=== PATIENT | male | born 1960 | race Caucasian/White ===

== ENCOUNTER 2019-07-18 13:28 | Outpatient (CLI) | payer MEDICAID, SELFPAY ==
--- NOTE | 2019-07-18 15:00 | USCV_ITS ---
Carrie Ty Age: 59 Gender: M : 1960 Exam Date: 07/18/2019 14:45 Ordering Phys: Simón Mendes DPM Technologist: Kaur Morgan Exam Location: [facility] [place] Indication: pre op evaluation for surgical contraindication HISTORY: for surgical contraindication- pre op for right ankle nodule PROCEDURES: Bilaterally, the common femoral, superficial femoral, profunda femoral, popliteal, posterior tibial, greater saphenous veins, and the peroneal trunk were identified and interrogated in the standard fashion. These veins were found to be easily compressible with spontaneous blood flow. FINDINGS: No DVT or superficial thrombus in either extremity. CONCLUSIONS No evidence of right lower extremity DVT. No evidence of left lower extremity DVT. 1.3 x 1.8cm cystic nodule right ankle Vargas Serrato MD (Electronically Signed) Final Date: 18 July 2019 16:16 S
--- NOTE | 2019-07-18 16:00 | MR_ITS ---
WS: [id number] MRI RIGHT ANKLE NONCONTRAST TECHNIQUE: Sagittal proton density, sagittal STIR, axial proton density, axial T1, axial T2 fat sat, coronal proton density, coronal proton density fat sat, coronal T2 fat sat. CLINICAL INFORMATION: mass of right ankle COMPARISON: None. FINDINGS: T2 hyperintense lobulated cystic-appearing lesion in the area of palpable abnormality dorsal ankle. L obulated T2 hyperintense lesion measures approximately 1.9 x 1.5 x 2.8 cm. T2 hyperintense lesion is interposed between the Achilles tendon and the dorsal process of the talus. No significant bony erosi on. Lobulated lesion appears well encapsulated. Some associated T1 hyperintensity likely represents p roteinaceous debris. Achilles tendon is normal in appearance. Normal peroneus longus and brevis. Normal flexor and extenso r compartment tendons. MR/MR ankle RT wo con* [id number] IMPRESSION: 1. Lobulated T2 hyperintense lesion interposed between the Achilles tendon and posterior process of the talus likely represents ganglion cyst 2. Suspected ganglion cyst measures 1.9 x 1.5 x 2.8 cm
== END 2019-07-18 13:29 | disposition home or self-care (01) ==
LOC: US 13:30
PROVIDERS: Family Provider Nurse Practitioner Family; PCP Nurse Practitioner Family; Visit Provider Podiatrist Foot & Ankle Surgery
DX: Z01.818 Encounter for other preprocedural examination (principal); R22.41 Localized swelling, mass and lump, right lower limb
CPT/HCPCS: 73721; 93970

== ENCOUNTER → 2019-08-11 08:36 | Outpatient (BNVA) | payer MEDICAID, SELFPAY | PROVIDERS: Family Provider Nurse Practitioner Family; PCP Nurse Practitioner Family; Visit Provider Podiatrist Foot & Ankle Surgery | DX: M67.40 Ganglion, unspecified site (principal) | CPT/HCPCS: 88112; 88173; 88305 ==

== ENCOUNTER → 2020-01-16 12:10 | Outpatient (BNVA) | payer MEDICAID, SELFPAY | PROVIDERS: Family Provider Nurse Practitioner Family; PCP Nurse Practitioner Family; Visit Provider Nurse Practitioner Family | DX: M79.642 Pain in left hand (principal) | CPT/HCPCS: 73130 ==

== ENCOUNTER → 2020-03-22 16:15 | Outpatient (BNVA) | payer MEDICAID, SELFPAY | PROVIDERS: Family Provider Nurse Practitioner Family; PCP Nurse Practitioner Family; Visit Provider Nurse Practitioner Family | DX: Z11.59 Encounter for screening for other viral diseases (principal); J06.9 Acute upper respiratory infection, unspecified | CPT/HCPCS: 87635 ==

== ENCOUNTER 2020-05-15 12:07 | Emergency (ER) | payer MEDICAID, SELFPAY ==
[2020-05-15 12:13] VITALS: BP 119/73; PULSE 82; RESP 16; TEMP 37.1; O2SAT 96; BMI 21.9
--- NOTE | 2020-05-15 12:21 | PC.NURSE ---
pt placed in c-collar.
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
[2020-05-15 12:24] VITALS: PULSE 80
== END 2020-05-15 13:56 | disposition home or self-care (01) ==
PROVIDERS: Emergency Provider Nurse Practitioner Family; PCP Nurse Practitioner Family
DX: S46.912A Strain of unspecified muscle, fascia and tendon at shoulder and upper arm level, left arm, initial encounter (principal); V89.2XXA Person injured in unspecified motor-vehicle accident, traffic, initial encounter; F17.210 Nicotine dependence, cigarettes, uncomplicated
CPT/HCPCS: 12345; 73030; 99281; 99282

== ENCOUNTER → 2020-05-22 11:03 | Outpatient (BNVA) | payer OTHER, MEDICAID, SELFPAY | PROVIDERS: PCP Nurse Practitioner Family; Visit Provider Nurse Practitioner Family | DX: M54.9 Dorsalgia, unspecified (principal); M54.2 Cervicalgia; M79.604 Pain in right leg | CPT/HCPCS: 72040; 72072; 72100; 73590 ==

== ENCOUNTER 2020-06-01 14:41 | Outpatient (CLI) | payer MEDICAID, SELFPAY ==
--- NOTE | 2020-06-01 14:45 | CT_ITS ---
WS: [id number] CT scan of the head, 06/01/2020. Clinical Data: R51.9 - Headache, unspecified Comparison: 06/11/2015. DLP: 925.[address] scans at [facility] use at least one of these dose optimization techniques: automat ed exposure control; mA and/or kV adjustment per patient size (includes targeted exams where dose is matched to clinical indication); or iterative reconstruction. Findings: The ventricular system is normal without shift. No recent infarct or hemorrhage is seen. There are no abnormal intracerebral masses. The cerebellum and brainstem are not remarkable. Bony windows of the skull and skull base show no fractures or erosions. The mastoid air cells, pr intern al auditory canals, sella turcica, intraorbital contents, and paranasal sinuses are unremarkable. CT/CT head wo con* [id number] Impression: Negative CT scan of the head
== END 2020-06-01 14:42 | disposition home or self-care (01) ==
LOC: RADWPI 14:44
PROVIDERS: PCP Nurse Practitioner Family; Visit Provider Nurse Practitioner Family
DX: R51.9 Headache, unspecified (principal)
CPT/HCPCS: 70450

== ENCOUNTER → 2020-07-09 10:26 | Outpatient (BNVA) | payer MEDICAID, SELFPAY | PROVIDERS: PCP Nurse Practitioner Family; Visit Provider Podiatrist Foot & Ankle Surgery | DX: Z01.812 Encounter for preprocedural laboratory examination (principal); Z20.828 Contact with and (suspected) exposure to other viral communicable diseases | CPT/HCPCS: 87635 ==

== ENCOUNTER 2020-07-13 07:19 | Day surgery (SDC) | payer MEDICAID, SELFPAY ==
[2020-07-12 15:34] VITALS: BMI 20.3
[2020-07-13 07:42] VITALS: BP 139/98; PULSE 83; RESP 18; TEMP 36.8; O2SAT 97
[2020-07-13] MEDS: sodium chloride 0.9% 1,000 ML 30 ML IV (08:00)
--- NOTE | 2020-07-13 08:21 | ANES.PREANE2 ---
Pre-Anesthetic Assessment Pre-Anesthetic Assessment: Height/Weight: Height 1.6 m Weight 52.163 kg Temp Pulse Resp BP Pulse Ox 98.3 F 83 18 139/98 97 07/13/20 07:42 07/13/20 07:42 07/13/20 07:42 07/13/20 07:42 07/13/20 07:42 Preop Diagnosis: Ganglion cyst right lower extremity Proposed Procedure: Operation Date: 07/13/20 09:45 Proposed Procedures p Excision of ganglion cyst 36265 M67.40(Not Applicable) - Simón Mendes, DPM Was Beta Byron taken within 24 hours: N/A Last intake: Intake Last Liquid Date 07/12/20 Last Liquid Time 22:00 Last Solid Date 07/12/20 Last Solid Time 17:00 Social: Social History: Tobacco and No alcohol Exam: Pre-Anes Outpt Exam: alert, oriented x 3 and regular rate & rhythm Additional Exam Findings (including area of procedure): rhonchi Airway: Submandibular: WNL Cervical ROM: WNL MP: 2 Dentition: False Pulmonary: Pulmonary: Cough Musc/skel: Musc/skel: Lower Back Pain Neuropsych: Neuropsych: Seizure Anesthetic Plan: ASA status: 3 Anesthesia: General and Regional (specify below) (poploteal blk) Risk of > 500 ml blood loss (7ml/kg in children): No PFSH Anesthesia PFSH: Medical History Controlled epilepsy follows with Dr Cooper Lipoma of extremity Restless legs syndrome Seasonal allergies Spinal stenosis, cervical region Surgical History History of back surgery Hx of brain surgery (~1970) Hx of hand surgery bilateral Hx of hernia repair Hx of shoulder surgery Hx of tonsillectomy Social History Smoking and tobacco status: current every day smoker cigarettes Packs smoked per day: 0.25 Years cigarettes smoked: 40 Second hand smoke exposure: No Alcohol intake: never Lives independently: Yes Household members: none Marital status: Current occupational status: employed 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
--- NOTE | 2020-07-13 09:24 | W.PM.OPSUD ---
Surgery/Procedure H&P Update DATE OF PROCEDURE: July 13, 2020 DATE H&P PERFORMED: 07/04/20 H&P UPDATE INFORMATION: I have reviewed H&P completed within last 30 days, I have examined patient prior to procedure, No changes to prior documentation and H&P is in [facility] EMR on date indicated PREOP DIAGNOSIS: Ganglion cyst right lower extremity PLANNED PROCEDURE: Operation Date: 07/13/20 09:45 Proposed Procedures p Excision of ganglion cyst 01059 M67.40(Not Applicable) - Simón Mendes DPM
--- NOTE | 2020-07-13 09:25 | P.OP_ITS ---
Operative Report Date of procedure: July 13, 2020 Pre-op Diagnosis: Ganglion cyst right lower extremity Post-op diagnosis: same Post-op Findings: Ganglion cyst right lower extremity Procedure Done: Excision of ganglion cyst right lower extremity CPT code 39186 Implants: 2-0 Vicryl, 4-0 Vicryl, 4-0 nylon Specimens removed/disposition: Ganglion cyst right lower extremity sent to cytology and pathology Pathology: none sent Surgeon: Simón Mendes D.P.M. Planting Material Remover: Raffaele Anesthesia: MAC Estimated blood loss: Less than 20 mL Tourniquet time: No tourniquet utilized IV fluids: None Urine output: None Complications: None Findings: Ganglion cyst right lower extremity Condition: stable Disposition: PACU Brief History: Patient is a pleasant 60-year-old male with ganglion cyst confirmed on MRI that is clinically symptomatic and subjectively a causing him pain with everyday activity standing and walking. Cyst has been enlarging causing him more intense pain he would like to have it removed. He did have aspirated once and it returned over the course of several months. Risks include pain, bleeding, numbness, infection, recurrence of ganglion cyst. Scar tissue, damage to adjacent soft tissue structures, need for further surgical intervention, seroma, hematoma, surgical site dehiscence, painful scar. Patient interviewed preoperatively and all questions answered to patient satisfaction. Informed consent signed by patient and myself. Initial patient's right lower extremity with a skin marker. He wishes to proceed. No guarantees written, expressed or implied. Procedure: Under mild sedation the patient was brought to the operating room and a timeout was performed. Anesthesia was administered by the anesthesia service. Of note patient received a popliteal block preoperatively to the right lower extremity per anesthesia. Patient was placed on the operating table in lateral decubitus position lying on his left side. Well-padded pneumatic tourniquet applied to the right high calf. Right lower extremity was scrubbed, prepped and draped utilizing normal aseptic technique. Of note tourniquet was not inflated throughout the duration of the procedure. Attention was directed to the right posterior lateral distal Achilles where a linear longitudinal incision was made at a posterior lateral ankle technique utilizing a #15 blade through skin and dissection carried down through subcutaneous tissue utilizing a combination of sharp and blunt technique. Care was taken to retract and preserve neurovascular and tendon structures. Bleeders were ligated and cauterized as necessary. Anterior to the Achilles and posterior to the distal tibia a ganglion cyst that was multilobulated was encountered and freed up from adjacent soft tissue structures. This was excised and passed from operative field sent to pathology/cytology for review. Stalk was cauterized and tied off with 2-0 Vicryl. Incision site was flushed with copious amounts of sterile saline solution. Deep fascia reapproximated utilizing 2-0 Vicryl. Subcutaneous tissue reapproximated utilizing 4-0 Vicryl and skin reapproximated utilizing 4-0 nylon. Incision site was dressed with Adaptic, sterile 4 x 4, Kerlix and Zelalem wrap followed by application of postop shoe. Patient tolerated the procedure well and was transferred to the PACU with vital signs stable and vascular status intact. Following a period of postoperative monitoring he will be discharged home may be weightbearing as tolerated he is to keep his postoperative dressings clean, dry and intact until follow-up visit next week.
[2020-07-13 09:28] VITALS: RESP 18; O2SAT 98
[2020-07-13] MEDS: fentaNYL 50 mcg/mL INJ 2mL IVP (09:28)
[2020-07-13] MEDS: midazolam 1 mg/mL INJ 2 mL 2 MG IVP (09:28)
--- NOTE | 2020-07-13 09:31 | ANES.PROC ---
Anesthesia Procedures Procedure/Date: 07/13/20 Nerve Block ^: Nerve Block 1: Main Anesthesia: other (MAC) Time Out Performed: Yes Consent: requested by attending/covering physician, from patient, risks and benefits reviewed and patient agrees to proceed Nerve block location: popliteal (right) Anesthesia monitors applied: pulse oximetry, EKG, BP cuff and oxygen Nerve block position: lateral Anesthetic Used: ropivicaine 0.5% and with epi Amount of anesthesia used (mL): 30 Ultrasound used to: recognize landmarks Nerve Stimulator Used?: No Interscalene/Femoral BLK: 4 stimuplex 21 g needle used for position and inplane approach, visualize local anesthetic spread and no vascular puncture identified Injection: neg aspiration of heme Patient Tolerated Procedure: well Complications: none
[2020-07-13] MEDS: clindamycin 600 MG/50 ML PREMIX 100 MG IV (10:13)
[2020-07-13 11:31] VITALS: BP 125/80; PULSE 87; RESP 18; TEMP 36.3; O2SAT 96
--- NOTE | 2020-07-13 11:43 | ANE.PACU2 ---
Inpatient post-anesthesia follow up: Airway intact: Yes Vital signs: Temperature 97.3 F Pulse Rate 87 Respiratory Rate 18 Blood Pressure 125/80 Pulse Oximetry 96 Oxygen Delivery Me thod Room Air Oxygen Flow Rate Fraction of Inspir ed Oxygen Hydration adequate: Yes Nausea and vomiting: No Pain level: 1 Mental status: Baseline
[2020-07-13 12:03] VITALS: BP 141/98; PULSE 87; RESP 18; TEMP 36.1; O2SAT 97
== END 2020-07-13 13:01 | disposition home or self-care (01) ==
PROVIDERS: PCP Nurse Practitioner Family; Visit Provider Podiatrist Foot & Ankle Surgery
PROC: (CPT 27630; principal; 2020-07-13 09:35)
DX: M67.471 Ganglion, right ankle and foot (principal); F17.210 Nicotine dependence, cigarettes, uncomplicated
CPT/HCPCS: 27630; 12345; 64450; 76942; 88304; 96365; 96374; J0171; J2250; J2370; J2704; J2795; J3010; J3490; J7030

== ENCOUNTER → 2021-07-30 12:15 | Outpatient (BNVA) | payer MEDICAID, SELFPAY | PROVIDERS: PCP Nurse Practitioner Family; Visit Provider Nurse Practitioner Family | DX: G43.909 Migraine, unspecified, not intractable, without status migrainosus (principal); R73.9 Hyperglycemia, unspecified; G25.81 Restless legs syndrome; G40.909 Epilepsy, unspecified, not intractable, without status epilepticus; M54.9 Dorsalgia, unspecified; M54.2 Cervicalgia | CPT/HCPCS: 80053; 80061; 82306; 82607; 83036; 83735; 84443; 85025 ==

== ENCOUNTER → 2021-09-09 10:29 | Outpatient (BNVA) | payer MEDICAID, SELFPAY | PROVIDERS: PCP Nurse Practitioner Family; Visit Provider Nurse Practitioner Family | DX: R73.09 Other abnormal glucose (principal) | CPT/HCPCS: 36416; 80053; 82962; 85025 ==

== ENCOUNTER → 2022-06-13 15:14 | Outpatient (BNVA) | payer MEDICAID, SELFPAY | PROVIDERS: PCP Nurse Practitioner Family; Visit Provider Nurse Practitioner Family | DX: E11.9 Type 2 diabetes mellitus without complications (principal); Z12.5 Encounter for screening for malignant neoplasm of prostate; E55.9 Vitamin D deficiency, unspecified; G89.29 Other chronic pain; M54.2 Cervicalgia; R42 Dizziness and giddiness | CPT/HCPCS: 80053; 80061; 82306; 83036; 84443; 85025; G0103 ==

== ENCOUNTER 2022-06-20 15:58 | Outpatient (CLI) | payer MEDICAID, SELFPAY ==
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
--- NOTE | 2022-06-20 16:08 | XRR_ITS ---
PROCEDURE INFORMATION: Exam: XR Thoracic Spine Exam date and time: 06/20/2022 4:09 PM Age: 62 years old Clinical indication: Injury or trauma; Other: Unloading auger; Blunt trauma (contusions or hematomas); Injury date: 06/18/22; Prior surgery; Surgery date: 6+ months; Surgery type: Cervical fusion; Patient HX: While unloading equipment from truck it took him to ground. C/O back pain, neck pain, muscle spasms. Fingertips asleep; Additional info: M54.2 - cervicalgia TECHNIQUE: Imaging protocol: Radiologic exam of the thoracic spine. Views: 3 views. COMPARISON: CR XR thoracic spine 3V* [id number] 05/22/2020 11:11 AM FINDINGS: Bones/joints: The thoracic spine maintains a normal kyphotic curvature. No spondylolisthesis identified. The vertebral bodies maintain normal height. The intervertebral discs maintain normal height. Minimal endplate degenerative changes. Soft tissues: Unremarkable. XR/XR thoracic spine 3V* [id number] IMPRESSION: No vertebral body height loss or traumatic malalignment identified.
== END 2022-06-20 15:59 | disposition home or self-care (01) ==
LOC: RAD 16:02
PROVIDERS: PCP Nurse Practitioner Family; Visit Provider Nurse Practitioner Family
DX: M54.2 Cervicalgia (principal); M54.50 Low back pain, unspecified; R07.81 Pleurodynia; M54.6 Pain in thoracic spine
CPT/HCPCS: 71111; 72040; 72072; 72100

== ENCOUNTER 2022-06-26 15:09 | Outpatient (RCR) | payer MEDICAID, SELFPAY | END 2022-07-15 23:59 | disposition home or self-care (01) | LOC: SPT 15:09 | PROVIDERS: PCP Nurse Practitioner Family; Visit Provider Nurse Practitioner Family | DX: R42 Dizziness and giddiness (principal) | CPT/HCPCS: 97001; 97110 ==

== ENCOUNTER → 2022-10-22 11:18 | Outpatient (BNVA) | payer MEDICAID, SELFPAY | PROVIDERS: PCP Nurse Practitioner Family; Referring Provider Nurse Practitioner Family; Visit Provider Internal Medicine | DX: E11.649 Type 2 diabetes mellitus with hypoglycemia without coma (principal); G31.84 Mild cognitive impairment of uncertain or unknown etiology; E78.2 Mixed hyperlipidemia; Z79.4 Long term (current) use of insulin; Z98.84 Bariatric surgery status | CPT/HCPCS: 36415; 80053; 80061; 82044; 83036; 84681; 99204 ==

== ENCOUNTER → 2023-02-26 11:17 | Outpatient (BNVA) | payer MEDICAID, SELFPAY | PROVIDERS: PCP Nurse Practitioner Family; Visit Provider Nurse Practitioner Family | DX: E11.9 Type 2 diabetes mellitus without complications; E78.5 Hyperlipidemia, unspecified; L03.90 Cellulitis, unspecified | CPT/HCPCS: 80053; 80061; 83036 ==

== ENCOUNTER 2023-05-13 12:32 | Emergency (ER) | payer MEDICAID, SELFPAY ==
[2023-05-13 12:42] VITALS: BP 102/61; PULSE 71; RESP 17; TEMP 36.7; O2SAT 92; BMI 19.3
[2023-05-13 12:54] LABS: Glucose Point of Care 140 mg/dL (70-110)
[2023-05-13 13:07] LABS: Basophils # 0.1 10^3/uL (0.0-0.1); Basophils % 1.1 %; Eosinophils # 0.1 10^3/uL (0.0-0.8); Eosinophils % 0.6 %; Hematocrit 47.5 % (37-53); Lymphocytes # 2.1 10^3/uL (0.8-4.8); Lymphocytes % 25.6 %; Mean Corpuscular HGB Conc 33.7 g/dL (30-55); Mean Corpuscular Hemoglobin 31.3 pg (27-33); Mean Corpuscular Volume 92.8 fl (82-101); Mean Platelet Volume 10.2 fL (7.4-10.4); Monocytes # 0.3 10^3/uL (0.2-0.9); Monocytes % 4.1 %; Neutrophils # 5.54 10^3/uL (1.8-7.7); Neutrophils % 68.4 %; Nucleated Red Blood Cells % 0 %; Platelet Count 237 10^3/cmm (157-399); Red Blood Count 5.12 10^6/uL (3.85-5.65); Red Cell Distribution Width 12.8 % (12.1-15.1)
--- NOTE | 2023-05-13 13:15 | ED_ITS ---
HPI - Syncope 2 General: Chief Complaint: Syncope Stated Complaint: High Blood sugar Time Seen by Provider: 05/13/23 13:11 History of Present Illness: 63-year-old male patient comes in today for complaints of lightheaded and dizziness this morning. Patient reports he got up and went to work but forgot his insulin. Patient ate some biscuits and gravy and then went back to work. While at work patient became lightheaded and dizzy. Patient felt like he was going to pass out. It was noted that patient had a blood sugar of 550. Patient was able to get his insulin and had taken 18 units after. Employer was concerned and called ambulance for patient to be further evaluated. Patient was then brought to the ER. Patient at this time is alert oriented and complains of a headache. Patient does have a history of migraine headaches. Patient appears nontoxic. Associated symptoms: Reports headache(s) and nausea; Deny abdominal pain or chest pain Review of Systems 2 General: Reports: 10 or more systems reviewed and unremarkable except in HPI and below Const: Reports: malaise Eyes: Denies: change in vision ENMT: Denies: throat pain Card: Denies: chest pain Resp: Denies: dyspnea GI: Reports: nausea; Denies: abdominal pain, vomiting, diarrhea or constipation : Denies: difficulty urinating Musc: Denies: neck pain or back pain Neuro: Reports: headache(s) and dizziness PFSH ED 2 PFSH: Medical History Chronic low back pain Controlled epilepsy follows with Dr Cooper Hyperlipidemia Lipoma of extremity Restless legs syndrome Seasonal allergies Spinal stenosis, cervical region Surgical History History of back surgery Hx of brain surgery (~1970) Hx of hand surgery bilateral Hx of hernia repair Hx of shoulder surgery Hx of tonsillectomy Social History Smoking and tobacco/nicotine status: current every day tobacco/nicotine user cigarettes Packs smoked per day: 0.25 Years cigarettes smoked: 40 Second hand smoke exposure: No Alcohol intake: never Substance/Drug Use: never Lives independently: Yes Household members: none Marital status: Current occupational status: employed 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 Current gender identity: Male Physical Exam 2 Const: COMMON NORMALS: alert HENMT: COMMON NORMALS: normocephalic and atraumatic HEAD & SCALP: n ormocephalic and atraumatic MOUTH: Normal oral and palatal mucosa present Neck/C-Spine: COMMON NORMALS: full ROM Resp: COMMON NORMALS: normal respiratory effort and clear to auscultation bilaterally AUSCULTATION: clear to auscultation bilaterally Cardio: COMMON NORMALS: regular rate and regular rhythm RATE: regular rate RHYTHM: regular rhythm GI: COMMON NORMALS: Soft to palpation and non-tender PALPATION: Yes Soft to palpation Back/Pelvis: COMMON NORMALS: thoracic and lumbar spine normal to inspection Extremity: COMMON NORMALS: no pedal edema Neuro: SENSORIUM/ORIENTATION: Yes alert Skin: COMMON NORMALS: turgor normal GENERAL SKIN EXAM: turgor normal Course 2 Vital Signs: Vital signs: Vital Signs Temperature 98.1 F 05/13/23 12:42 Pulse Rate 66 05/13/23 14:05 Respiratory Rate 16 05/13/23 14:05 Blood Pressure 110/81 05/13/23 14:05 Pulse Oximetry 98 05/13/23 14:05 Oxygen Delivery Me thod Room Air 05/13/23 13:23 MDM - Syncope Medical Decision Making 63-year-old male patient comes in today for complaints of dizziness and lightheadedness. 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 Patient forgot to take his insulin this morning. It was noted patient had a 550 blood glucose. Patient took 18 units of insulin per his sliding scale. Patient denied chest pain. Respirations are even lungs are clear to auscultation. Skin is warm and dry. Vital signs are normal. Patient complains of a headache. Differential diagnosis includes not limited to insulin-dependent diabetes mellitus, hypoglycemia, hyperglycemia, urinary tract infection, dehydration, DKA. Patient's blood glucose come down. Patient was given Reglan for his headache with improvement. Laboratory values were unremarkable. Patient was able to eat and tolerate food and fluids. Patient was recommended to follow-up with primary care return to ED for worsening symptoms or new concerns. Lab Data 05/13/23 12:55 05/13/23 12:55 Laboratory Results WBC 8.10 10^3/uL (3.29-11.43) 05/13/23 12:55 RBC 5.12 10^6/uL (3.85-5.65) 05/13/23 12:55 Hgb 16.00 g/dL (11.27-16.99) 05/13/23 12:55 Hct 47.5 % (37-53) 05/13/23 12:55 MCV 92.8 fl (82-101) 05/13/23 12:55 MCH 31.3 pg (27-33) 05/13/23 12:55 MCHC 33.7 g/dL (30-55) 05/13/23 12:55 RDW 12.8 % (12.1-15.1) 05/13/23 12:55 Plt Count 237 10^3/cmm (157-399) 05/13/23 12:55 MPV 10.2 fL (7.4-10.4) 05/13/23 12:55 Neut % (Auto) 68.4 % 05/13/23 12:55 Lymph % (Auto) 25.6 % 05/13/23 12:55 [place] % (Auto) 4.1 % 05/13/23 12:55 Eos % (Auto) 0.6 % 05/13/23 12:55 Baso % (Auto) 1.1 % 05/13/23 12:55 Neut # (Auto) 5.54 10^3/uL (1.8-7.7) 05/13/23 12:55 Lymph # (Auto) 2.1 10^3/uL (0.8-4.8) 05/13/23 12:55 [place] # (Auto) 0.3 10^3/uL (0.2-0.9) 05/13/23 12:55 Eos # (Auto) 0.1 10^3/uL (0.0-0.8) 05/13/23 12:55 Baso # (Auto) 0.1 10^3/uL (0.0-0.1) 05/13/23 12:55 Nucleated RBC % (auto) 0 % 05/13/23 12:55 Nucleated RBCs # 0.0 /100WBC 05/13/23 12:55 Sodium 141 mmol/L (136-145) 05/13/23 12:55 Potassium 4.2 mmol/L (3.5-5.1) 05/13/23 12:55 Chloride 106 mmol/L (98-107) 05/13/23 12:55 Carbon Dioxide 22 mmol/L (22-29) 05/13/23 12:55 Anion Gap 17.2 (5-19) 05/13/23 12:55 BUN 12 mg/dL (8-23) 05/13/23 12:55 Creatinine 1.0 mg/dL (0.7-1.2) 05/13/23 12:55 GFR Calculation 75.5 mL/min (90-130) L 05/13/23 12:55 Glucose 112 mg/dL (65-115) 05/13/23 12:55 POC Glucose 140 mg/dL (70-110) H 05/13/23 12:48 Calculated Osmolality 293 mOsm/kg (285-295) 05/13/23 12:55 Calcium 9.2 mg/dL (8.5-10.5) 05/13/23 12:55 Total Bilirubin 0.5 mg/dL (0.15-1.2) 05/13/23 12:55 AST 18 U/L (0-40) 05/13/23 12:55 ALT 20 U/L (0-41) 05/13/23 12:55 Alkaline Phosphatase 106 U/L (40-130) 05/13/23 12:55 Total Protein 6.7 g/dL (6.6-8.7) 05/13/23 12:55 Albumin 4.1 g/dL (3.5-5.2) 05/13/23 12:55 Globulin 2.6 g/dL (1.3-4.6) 05/13/23 12:55 Urine Color Yellow (Yellow) 05/13/23 14:16 Urine Appearance Clear (CLEAR) 05/13/23 14:16 Urine pH 7 (5-7) 05/13/23 14:16 Ur Specific [place] 1.020 (1.005-1.030) 05/13/23 14:16 Urine Protein Neg (Negative) 05/13/23 14:16 Urine Glucose (UA) 4+ (Normal) H 05/13/23 14:16 Urine Ketones Negative (Negative) 05/13/23 14:16 Urine Blood Neg (Negative) 05/13/23 14:16 Urine Nitrate Negative (Negative) 05/13/23 14:16 Urine Bilirubin Neg (Negative) 05/13/23 14:16 Urine Urobilinogen Norm mg/dL (Negative) 05/13/23 14:16 Ur Leukocyte Esterase Negative (Negative) 05/13/23 14:16 Serum Ketones Negative (Negative) 05/13/23 12:55 No radiology studies performed this visit Discharge Plan Discharge Patient Disposition: Home Clinical Impression: Type 2 diabetes mellitus Qualifiers: Diabetes mellitus terminal worker insulin use: with skilled nursing use Diabetes mellitus complication status: with hyperglycemia Qualified Code(s): E11.65 - Type 2 diabetes mellitus with hyperglycemia Condition: Stable Prescriptions: Continued Novolog FlexPen U-100 Insulin 100 unit/mL (3 mL) insulin pen See Rx Instructions SUBCUT TID Qty: 15 1RF Rx Instructions: Per Sliding Scale subcutaneously three times daily; No Action (DME) Dexcom G7 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 See Rx Instructions .Route Qty: 1 0RF Rx Instructions: As directed (DME) Dexcom G7 Sensor Device See Rx Instructions .Route Qty: 3 2RF Rx Instructions: As directed tizanidine 4 mg capsule 4 mg PO TID PRN (Reason: muscle spasticity) Qty: 30 0RF naproxen 500 mg tablet 500 mg PO BID PRN (Reason: pain) Qty: 60 0RF omeprazole 20 mg capsule,delayed release(DR/EC) 20 mg PO DAILY phenytoin sodium extended 100 mg capsule 200 mg PO BID loratadine 10 mg tablet 10 mg PO DAILY atorvastatin 40 mg tablet 40 mg PO DAILY Qty: 90 0RF gabapentin 600 mg tablet 600 mg PO TID 30 Days Qty: 90 2RF Janumet XR 100-1,000 mg tablet, ER multiphase 24 hr 1 tab PO DAILY Qty: 90 0RF betamethasone valerate 0.1 % cream 1 applic topical TID PRN (Reason: skin irritation) Qty: 45 1RF loratadine [Claritin] 10 mg tablet 10 mg PO DAILY 90 Days Qty: 90 0RF ondansetron 4 mg tablet,disintegrating 4 mg PO Q6H PRN (Reason: nausea and vomiting) Qty: 30 0RF doxycycline hyclate 100 mg capsule 100 mg PO BID 10 Days Qty: 20 0RF cholecalciferol (vitamin D3) 1,250 mcg (50,000 unit) tablet 50,000 unit PO .weekly Qty: 4 2RF sumatriptan succinate [Imitrex] 100 mg tablet See Rx Instructions PO .COMPLEX PRN (Reason: migraine headache) Qty: 10 0RF Rx Instructions: take 1 tab at onset of headache; if no relief, may repeat 1 tab after at least 2 hrs; max = 2 tabs/24 hrs Pt states lost meds in [place] (DME) Blood Glucose Test Strip See Rx Instructions .ROUTE .MEDSUPPLY Qty: 50 0RF Rx Instructions: to test 1 x day (DME) blood-glucose meter Misc See Rx Instructions .Route Qty: 1 0RF Rx Instructions: test blood sugar 1 time daily (DME) Blood Glucose Test Strip See Rx Instructions .Route Qty: 25 1RF Rx Instructions: test blood sugar 1 time daily (DME) lancets 31 gauge misc See Rx Instructions .Route Qty: 100 0RF Rx Instructions: test blood sugar 1 time daily insulin glargine [Lantus Solostar U-100 Insulin] 100 unit/mL (3 mL) insulin pen See Rx Instructions .ROUTE .COMPLEX Qty: 15 0RF Dose Instruction: inject 10 units SUBCUTANEOUSLY DAILY Rx Instructions: inject 10 units SUBCUTANEOUSLY DAILY Discharge Orders: Discharge ED (Routine); Ordered 05/13/23 Ordered By: Dariusz Saab Referrals: Duyen Rush FNP [Primary Care Provider] - Patient Instructions: Diabetic Hyperglycemia (ED), Opioid Safety, Pain Management Activity Restrictions/Additional Instructions: Home rest. Continue with routine care. Follow-up with primary care for further instructions. 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
[2023-05-13 13:23] VITALS: BP 102/61; PULSE 77; RESP 18; O2SAT 96
[2023-05-13 13:31] LABS: Ketone (Acetest) Serum Negative (Negative)
[2023-05-13 13:34] LABS: Alanine Aminotransferase 20 U/L (0-41); Albumin Level 4.1 g/dL (3.5-5.2); Alkaline Phosphatase 106 U/L (40-130); Anion Gap 17.2 (5-19); Aspartate Amino Transferase 18 U/L (0-40); Blood Urea Nitrogen 12 mg/dL (8-23); Calcium 9.2 mg/dL (8.5-10.5); Carbon Dioxide 22 mmol/L (22-29); Chloride 106 mmol/L (98-107); Globulin 2.6 g/dL (1.3-4.6); Glomerular Filtration Rate 75.5 mL/min (90-130); Glucose 112 mg/dL (65-115); Osmolality Calculated 293 mOsm/kg (285-295); Potassium 4.2 mmol/L (3.5-5.1); Sodium 141 mmol/L (136-145); Total Bilirubin 0.5 mg/dL (0.15-1.2); Total Protein 6.7 g/dL (6.6-8.7)
[2023-05-13] MEDS: metoclopramide 5 mg/mL SDV 2 mL 10 MG IVP (14:03)
[2023-05-13] MEDS: diphenhydrAMINE 50 mg/mL SDV 1mL 12.5 MG IVP (14:03)
[2023-05-13 14:05] VITALS: BP 110/81; PULSE 66; RESP 16; O2SAT 98
[2023-05-13] MEDS: sodium chloride 0.9% 250 ML IV (14:05)
[2023-05-13 14:20] LABS: Add Urine Microscopic? NO; Charge for UA Resulting for Rev
[2023-05-13 14:58] LABS: Protein Urine Neg (Negative); Urine Appearance Clear (CLEAR); Urine Color Yellow (Yellow); pH Urine 7 (5-7)
[2023-05-13 14:59] LABS: Bilirubin Urine Neg (Negative); Blood Urine Neg (Negative); Glucose Urine UA 4+ (Normal); Ketones Urine Negative (Negative); Leukocyte Esterase Urine Negative (Negative); Nitrate Urine Negative (Negative); Urobilinogen Urine Norm (Negative)
== END 2023-05-13 15:25 | disposition home or self-care (01) ==
PROVIDERS: Emergency Medicine; Emergency Provider Nurse Practitioner Family; PCP Nurse Practitioner Family
DX: E11.65 Type 2 diabetes mellitus with hyperglycemia (principal); Z79.4 Long term (current) use of insulin; F17.210 Nicotine dependence, cigarettes, uncomplicated; E78.5 Hyperlipidemia, unspecified
CPT/HCPCS: 36415; 36416; 80053; 81003; 82009; 82962; 85025; 96374; 96375; 99284; J1200; J2765; J7050

== ENCOUNTER → 2023-08-10 10:30 | Outpatient (BNVA) | payer MEDICAID, SELFPAY | PROVIDERS: PCP Nurse Practitioner Family; Visit Provider Nurse Practitioner Family | DX: E11.65 Type 2 diabetes mellitus with hyperglycemia (principal); Z79.4 Long term (current) use of insulin; Z12.5 Encounter for screening for malignant neoplasm of prostate; E55.9 Vitamin D deficiency, unspecified | CPT/HCPCS: 80053; 80061; 81000; 82043; 82306; 82607; 83036; 84443; 85025; G0103 ==

== ENCOUNTER 2023-08-12 11:20 | Emergency (ER) | payer MEDICAID, SELFPAY ==
[2023-08-12] VITALS (8 sets, daily range): BP systolic 112–113; BP diastolic 55–57; PULSE 65–88; RESP 16–18; TEMP 36.8; O2SAT 93–98; BMI 21.2
--- NOTE | 2023-08-12 12:58 | XRR_ITS ---
PROCEDURE INFORMATION: Exam: XR Chest Exam date and time: 08/12/2023 1:05 PM Age: 63 years old Clinical indication: Cough and shortness of breath; Patient HX: Was exposed to ammonia fumes yesterday, PT developed cough afterwards; C/O feeling SOB and productive cough. PT has HX of asthma TECHNIQUE: Imaging protocol: Radiologic exam of the chest. Views: 1 view. COMPARISON: CR XR ribs BI mn 4V w CXR1V [id number] 06/20/2022 4:09 PM FINDINGS: Lungs: Unremarkable. No consolidation. Pleural spaces: Unremarkable. No pleural effusion. No pneumothorax. Heart/Mediastinum: Unremarkable. No cardiomegaly. Bones/joints: No acute findings. A metal plate is seen in the lower cervical spine. XR/XR chest 1V portable [id number] IMPRESSION: No acute findings.
--- NOTE | 2023-08-12 12:58 | ECG_ITS ---
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 [email or web address] medical [id number] f
--- NOTE | 2023-08-12 12:59 | W.ED.SOB ---
HPI - SOB/Dyspnea General: Chief Complaint: Shortness of Breath/Dyspnea Stated Complaint: SOB, Chest pain, Cough bloody sputum Time Seen by Provider: 08/12/23 11:40 Source: patient Mode of arrival: EMS Limitations: no limitations History of Present Illness: HPI Narrative: This patient presents to the emergency department with increasing cough and shortness of breath over the past several days. He has a known history of COPD and uses inhalers as well as nebulizer and states that occasionally his nebulizer helps him. He denies any known exposure to infectious disease. He has a history of tobacco use and continues to smoke. He denies any history of congestive heart failure or coronary disease. He has had flu vaccine as well as all of his COVID-vaccine as well as pneumonia vaccine. No recent travel. He states his cough is mostly nonproductive. He denies any chest sustained chest pains but does have pain when he coughs. Known history of: COPD Associated symptoms: Reports hemoptysis; Deny abdominal pain, extremity pain, fever(s), nausea, palpitations, syncope or vomiting Review of Systems Const: Denies: fever(s) or chills Eyes: Denies: change in vision ENMT: Denies: throat pain or odynophagia Card: Denies: palpitations, irregular heart rhythm, syncope or pre-syncope Resp: Reports: non-productive cough, wheezing and hemoptysis GI: Denies: abdominal pain, nausea, vomiting or diarrhea : Denies: flank pain, difficulty urinating, dysuria or urinary frequency Musc: Reports: back pain; Denies: neck pain, extremity pain or extremity swelling Skin/Breast: Denies: rash or pruritus Neuro: Denies: headache(s), numbness in extremities or weakness in extremities Psych: Denies: anxiety or depression [place]/Lymph: Denies: easy bruising or easy bleeding PFSH ED PFSH: Medical History Chronic low back pain Hyperlipidemia Controlled epilepsy follows with Dr Cooper Restless legs syndrome Seasonal allergies Lipoma of extremity Spinal stenosis, cervical region Surgical History Hx of tonsillectomy Hx of hernia repair Hx of hand surgery bilateral Hx of brain surgery (~1970) Hx of shoulder surgery History of back surgery Social History Smoking and tobacco/nicotine status: current every day tobacco/nicotine user cigarettes Packs smoked per day: 0.25 Years cigarettes smoked: 40 Second hand smoke exposure: No Alcohol intake: never Substance/Drug Use: never Lives independently: Yes Household members: none Marital status: Current occupational status: employed 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 He is able to talk in complete sentences. Const: COMMON NORMALS: no acute distress, patient oriented x3 and alert GENERAL APPEARANCE: cooperative NUTRITIONAL APPEARANCE: thin HENMT: COMMON NORMALS: normocephalic, Normal nasal mucous membranes and turbinates present, moist oral mucous membranes and oropharynx normal HEAD & SCALP: normocephalic NOSE: Normal nasal mucous membranes and turbinates present Eye: COMMON NORMALS: Equal, round and reactive pupils present, EOMs intact bilaterally and conjunctivae normal CONJUNCTIVA: Yes conjunctivae normal PUPIL: Yes Equal, round and reactive pupils present Neck/C-Spine: COMMON NORMALS: full ROM, no lymphadenopathy and no JVD Chest: COMMONS NORMALS: normal inspection of the chest Resp: COMMON NORMALS: No retractions EFFORT & INSPECTION: Yes able to speak in complete sentences AUSCULTATION: rhonchi and wheezes Cardio: COMMON NORMALS: no JVD, regular rate, regular rhythm, No murmurs present (Cardio) and Peripheral pulses 2+ throughout RATE: regular rate RHYTHM: regular rhythm PERIPHERAL PULSES: Peripheral pulses 2+ throughout GI: COMMON NORMALS: Normal to inspection, nondistended, normoactive bowel sounds present, Soft to palpation and non-tender PALPATION: Yes Soft to palpation : COMMON NORMALS: Yes no CVA tenderness BLADDER/KIDNEY EXAM: Yes no CVA tenderness Back/Pelvis: COMMON NORMALS: no CVA tenderness, thoracic and lumbar spine normal to inspection and no thoracic nor lumbar tenderness Extremity: COMMON NORMALS: normal to inspection, full ROM, capillary refill normal, no calf tenderness and no pedal edema Neuro: COMMON NORMALS: patient oriented x3, moves all extremities, no focal motor deficits and no sensory deficits noted SENSORIUM/ORIENTATION: Yes alert Psych: COMMON NORMALS: mental status grossly normal Skin: COMMON NORMALS: no rashes or lesions noted, no wounds and no petechiae GENERAL SKIN EXAM: no rashes or lesions noted Course Reevaluation(s): Reevaluation #1: Patient states he is breathing better. He is not requiring oxygen at this time. Repeat examination reveals clear lungs without any wheezes or crackles. No other new or focal findings on repeat examination. Workup is reassuring as there is no evidence at this time to suggest ACS, thromboembolic disease, pneumonia etc. He has improved with use of beta agonist and apparently does not have beta agonist as part of his regimen. Plan will be to add that to his regimen. No evidence that oxygen is requiring. He apparently has just recently started prednisone and we will hold off on any additional steroids at this time. He is stable at this time to be discharged. Time: 16:46 Vital Signs: Vital signs: Vital Signs Temperature 98.2 F 08/12/23 11:22 Pulse Rate 71 08/12/23 16:26 Respiratory Rate 16 08/12/23 16:21 Blood Pressure 113/55 08/12/23 11:22 Pulse Oximetry 98 08/12/23 16:21 Oxygen Delivery Me thod Room Air 08/12/23 16:21 MDM - SOB/Dyspnea Medical Decision Making This patient presented to our emergency department with cough congestion, shortness of breath over the past several days. Does have a history of COPD as well as diabetes. No known history of coronary disease or congestive heart failure. He is also recently strained his trunk installing a hot water heater. Denies any fevers or chills or known exposure to infectious disease. Initial clinical examination revealed him to be oxygen requiring at 2 L to maintain saturation 95%. He had scattered rhonchi and wheezing on auscultation but no other significant clinical findings. His evaluation included chest x-ray biomarkers, D-dimer electrocardiograms etc. to and establish had no evidence of ACS CHF thromboembolic disease etc. existed. He also was given the benefit of a beta agonist inhalation therapy x 2. Subsequently became nonoxygen dependent with clear lungs. He is suitable to be discharged without any evidence of ongoing serious pathology at this time. A beta agonist will be added to his regimen. Lab Data I reviewed the patient's lab results. 08/12/23 14:27 08/12/23 14:27 Labs/Radiology: Radiology Impressions Chest X-Ray 08/12/23 12:58 IMPRESSION: No acute findings. Laboratory Results WBC 9.43 10^3/uL (3.29-11.43) 08/12/23 14: RBC 4.72 10^6/uL (3.85-5.65) 08/12/23 14:27 Hgb 14.80 g/dL (11.27-16.99) 08/12/23 14:27 Hct 43.2 % (37-53) 08/12/23 14:27 MCV 91.5 fl (82-101) 08/12/23 14:27 MCH 31.4 pg (27-33) 08/12/23 14: MCHC 34.3 g/dL (30-55) 08/12/23 14: RDW 13.3 % (12.1-15.1) 08/12/23 14: Plt Count 230 10^3/cmm (157-399) 08/12/23 14: MPV 10.5 fL (7.4-10.4) H 08/12/23 14: Neut % (Auto) 55.1 % 08/12/23 14:27 Lymph % (Auto) 37.5 % 08/12/23 14: [place] % (Auto) 5.0 % 08/12/23 14: Eos % (Auto) 1.2 % 08/12/23 14: Baso % (Auto) 1.0 % 08/12/23 14: Neut # (Auto) 5.20 10^3/uL (1.8-7.7) 08/12/23 14: Lymph # (Auto) 3.5 10^3/uL (0.8-4.8) 08/12/23 14:27 [place] # (Auto) 0.5 10^3/uL (0.2-0.9) 08/12/23 14: Eos # (Auto) 0.1 10^3/uL (0.0-0.8) 08/12/23 14: Baso # (Auto) 0.1 10^3/uL (0.0-0.1) 08/12/23 14:27 Nucleated RBC % (auto) 0 % 08/12/23 14:27 Nucleated RBCs # 0.0 /100WBC 08/12/23 14:27 D-Dimer 0.41 ug/mLFEU (0-0.59) 08/12/23 14:27 Sodium 140 mmol/L (136-145) 08/12/23 14:27 Potassium 3.9 mmol/L (3.5-5.1) 08/12/23 14:27 Chloride 103 mmol/L (98-107) 08/12/23 14:27 Carbon Dioxide 27 mmol/L (22-29) 08/12/23 14:27 Anion Gap 13.9 (5-19) 08/12/23 14:27 BUN 16 mg/dL (8-23) 08/12/23 14:27 Creatinine 1.0 mg/dL (0.7-1.2) 08/12/23 14:27 GFR Calculation 75.5 mL/min (90-130) L 08/12/23 14:27 Glucose 213 mg/dL (65-115) H 08/12/23 14:27 Calculated Osmolality 298 mOsm/kg (285-295) H 08/12/23 14:27 Calcium 9.1 mg/dL (8.5-10.5) 08/12/23 14:27 Total Bilirubin 0.7 mg/dL (0.15-1.2) 08/12/23 14:27 AST 21 U/L (0-40) 08/12/23 14:27 ALT 19 U/L (0-41) 08/12/23 14:27 Alkaline Phosphatase 101 U/L (40-130) 08/12/23 14:27 Troponin T Baseline 12 ng/L (0-15) 08/12/23 14:27 NT-Pro-B Natriuret Pep 42 pg/mL (0-125) 08/12/23 14:27 Total Protein 5.8 g/dL (6.6-8.7) L 08/12/23 14:27 Albumin 3.9 g/dL (3.5-5.2) 08/12/23 14:27 Globulin 1.9 g/dL (1.3-4.6) 08/12/23 14:27 All radiology interpretation(s) finalized by discharge EKG Data EKG 1: I personally reviewed and interpreted this EKG as follows: Interpretation: Contemporaneous review of resting EKG reveals normal sinus rhythm at a ventricular rate of 75 bpm. Normal NE interval, QRS duration, corrected QT interval. Normal axis. No acute ST-T wave changes noted at this time. 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 See Rx Instructions .Route Qty: 1 0RF Rx Instructions: As directed (DME) Dexcom G7 Sensor Device See Rx Instructions .Route Qty: 3 2RF Rx Instructions: As directed phenytoin sodium extended 100 mg capsule 200 mg PO BID Janumet XR 100-1,000 mg tablet, ER multiphase 24 hr 1 tab PO DAILY Qty: 90 1RF omeprazole 20 mg capsule,delayed release(DR/EC) 20 mg PO DAILY Qty: 90 1RF atorvastatin 40 mg tablet 40 mg PO DAILY Qty: 90 1RF tizanidine 4 mg capsule 4 mg PO TID PRN (Reason: muscle spasticity) Qty: 30 2RF naproxen 500 mg tablet 500 mg PO BID PRN (Reason: pain) Qty: 60 5RF insulin glargine [Lantus Solostar U-100 Insulin] 100 unit/mL (3 mL) insulin pen See Rx Instructions .ROUTE .COMPLEX Qty: 15 2RF Dose Instruction: inject 10 units SUBCUTANEOUSLY DAILY Rx Instructions: inject 10 units SUBCUTANEOUSLY DAILY Novolog FlexPen U-100 Insulin 100 unit/mL (3 mL) insulin pen See Rx Instructions SUBCUT TID Qty: 15 2RF Rx Instructions: Per Sliding Scale subcutaneously three times daily; ropinirole 1 mg tablet 1 mg PO DAILY Qty: 90 1RF tamsulosin 0.4 mg capsule 0.4 mg PO DAILY Qty: 90 1RF sildenafil [Viagra] 100 mg tablet 100 mg PO DAILY PRN (Reason: sexual activity) Qty: 10 2RF Rx Instructions: administer 30 minutes to 4 hours before activity Do not take with nitro. prednisone 20 mg tablet 20 mg PO BID 5 Days Qty: 10 0RF cholecalciferol (vitamin D3) 1,250 mcg (50,000 unit) tablet 50,000 unit PO .weekly Qty: 4 2RF (DME) Blood Glucose Test Strip See Rx Instructions .ROUTE .MEDSUPPLY Qty: 50 0RF Rx Instructions: to test 1 x day (DME) lancets 31 gauge misc See Rx Instructions .Route Qty: 100 0RF Rx Instructions: test blood sugar 1 time daily (DME) Blood Glucose Test Strip See Rx Instructions .Route Qty: 25 1RF Rx Instructions: test blood sugar 1 time daily (DME) blood-glucose meter Misc See Rx Instructions .Route Qty: 1 0RF Rx Instructions: test blood sugar 1 time daily gabapentin 600 mg tablet 600 mg PO TID loratadine 10 mg tablet 10 mg PO DAILY Discharge Orders: Discharge ED (Routine); Ordered 08/12/23 Ordered By: Manny Leo Referrals: Duyen Rush FNP [Primary Care Provider] - Discharge Diet: Usual diet Discharge Activity: Increase activity as tolerated Patient Instructions: Opioid Safety, Pain Management Activity Restrictions/Additional Instructions: Continue all your usual prescribed medications. We have also prescribed a new inhaler for you to use 2 to 3 puffs with your spacer 4-6 times daily as needed for any cough or wheezing. If you develop worsening or concerning new symptoms return to this or the nearest emergency department otherwise follow-up with your regular doctor in 2 to 3 weeks. Coding Level of Care Code ED Senior Software Project Manager for Bryan Hodge
[2023-08-12] MEDS: sodium chloride 0.9% 500 ML IV (13:27)
--- NOTE | 2023-08-12 13:51 | ECG_ITS ---
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 Measurements Intervals [place] Rate: 66 P: 75 [place]: 132 QRS: 92 QRSD: 85 T: 65 QT: 387 QTc: 406 Interpretive Statements SINUS RHYTHM BORDERLINE RIGHT AXIS DEVIATION [QRS AXIS > 90] Compared to ECG 08/12/2023 11:30:28 No significant changes Electronically Signed On 08-12-2023 15:27:24 BRIM BUSTER by Siddharth Machado M.D. [id number]
[2023-08-12] MEDS: ipratropium-albuterol 3 mL Neb INHALATION ×2 (13:58→16:21)
[2023-08-12 14:51] LABS: Basophils # 0.1 10^3/uL (0.0-0.1); Eosinophils # 0.1 10^3/uL (0.0-0.8); Eosinophils % 1.2 %; Hematocrit 43.2 % (37-53); Lymphocytes # 3.5 10^3/uL (0.8-4.8); Lymphocytes % 37.5 %; Mean Corpuscular HGB Conc 34.3 g/dL (30-55); Mean Corpuscular Hemoglobin 31.4 pg (27-33); Mean Corpuscular Volume 91.5 fl (82-101); Mean Platelet Volume 10.5 fL (7.4-10.4); Monocytes # 0.5 10^3/uL (0.2-0.9); Neutrophils % 55.1 %; Nucleated Red Blood Cells % 0 %; Platelet Count 230 10^3/cmm (157-399); Red Blood Count 4.72 10^6/uL (3.85-5.65); Red Cell Distribution Width 13.3 % (12.1-15.1); White Blood Count 9.43 10^3/uL (3.29-11.43)
[2023-08-12 15:10] LABS: D Dimer 0.41 ug/mLFEU (0-0.59)
[2023-08-12 15:17] LABS: Troponin(5th) Baseline 12 ng/L (0-15)
[2023-08-12 15:23] LABS: Alanine Aminotransferase 19 U/L (0-41); Albumin Level 3.9 g/dL (3.5-5.2); Alkaline Phosphatase 101 U/L (40-130); Anion Gap 13.9 (5-19); Aspartate Amino Transferase 21 U/L (0-40); Blood Urea Nitrogen 16 mg/dL (8-23); Calcium 9.1 mg/dL (8.5-10.5); Carbon Dioxide 27 mmol/L (22-29); Chloride 103 mmol/L (98-107); Creatinine Clr Calc Pharmacy 59.7952; Globulin 1.9 g/dL (1.3-4.6); Glomerular Filtration Rate 75.5 mL/min (90-130); Glucose 213 mg/dL (65-115); NT Pro B Type Natriuretic Pept 42 pg/mL (0-125); Osmolality Calculated 298 mOsm/kg (285-295); Potassium 3.9 mmol/L (3.5-5.1); Sodium 140 mmol/L (136-145); Total Bilirubin 0.7 mg/dL (0.15-1.2); Total Protein 5.8 g/dL (6.6-8.7)
[2023-08-12 16:48] LABS: Troponin 5 2HR 11.28 ng/L (0-15)
[2023-08-12 16:50] LABS: Troponin 5 2HR Delta -0.72 ABS# (0-10)
== END 2023-08-12 17:15 | disposition home or self-care (01) ==
PROVIDERS: Emergency Provider Emergency Medicine; PCP Nurse Practitioner Family
DX: J44.1 Chronic obstructive pulmonary disease with (acute) exacerbation (principal); Z79.4 Long term (current) use of insulin
CPT/HCPCS: 36415; 71045; 80053; 83880; 84484; 85025; 85378; 93005; 94640; 99285; J7040

== ENCOUNTER → 2024-02-04 12:03 | Outpatient (BNVA) | payer MEDICAID, SELFPAY | PROVIDERS: PCP Nurse Practitioner Family; Visit Provider Nurse Practitioner Family | DX: E11.65 Type 2 diabetes mellitus with hyperglycemia (principal); Z79.4 Long term (current) use of insulin; E55.9 Vitamin D deficiency, unspecified | CPT/HCPCS: 80053; 80061; 82306; 83036; 85025 ==

== ENCOUNTER 2024-02-17 17:33 | Emergency (ER) | payer MEDICAID, SELFPAY ==
[2024-02-17 17:42] VITALS: BP 103/63; PULSE 86; RESP 16; TEMP 36.7; O2SAT 97; BMI 19.5
[2024-02-17 18:01] LABS: Glucose Point of Care 219 mg/dL (70-110)
--- NOTE | 2024-02-17 18:06 | W.ED.WEAKNES ---
HPI - Weakness General: Chief complaint: Weakness Stated complaint: dizyy, weak, left arm numbness Time Seen by Provider: 02/17/24 18:06 History of Present Illness: Patient presents to the ER with complaints of just not feeling good. Patient been working outdoors all day long for the last 2 or 3 days and feels he is overheated. Patient reports she has a headache and dry mouth he just feels exhausted. Review of Systems General: Reports: 10 or more systems reviewed and unremarkable except in HPI and below PFSH ED PFSH: Medical History Chronic low back pain Hyperlipidemia Controlled epilepsy follows with Dr Cooper Restless legs syndrome Seasonal allergies Lipoma of extremity Spinal stenosis, cervical region Surgical History Hx of tonsillectomy Hx of hernia repair Hx of hand surgery bilateral Hx of brain surgery (~1970) Hx of shoulder surgery History of back surgery Social History Smoking and tobacco/nicotine status: never used tobacco/nicotine Second hand smoke exposure: No Alcohol intake: never Substance/Drug Use: never Lives independently: Yes Household members: none Marital status: Current occupational status: employed 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 Current gender identity: Male Physical Exam Const: COMMON NORMALS: no acute distress, average body habitus, patient oriented x3, no limitations, healthy appearing, alert and well nourished HENMT: COMMON NORMALS: normocephalic, atraumatic, hearing grossly normal bilaterally, external ears normal, Normal external nose present and moist oral mucous membranes HEAD & SCALP: normocephalic and atraumatic NOSE: Normal external nose present EXTERNAL EAR: Yes external ears normal Eye: COMMON NORMALS: Equal, round and reactive pupils present, EOMs intact bilaterally, conjunctivae normal and no scleral icterus CONJUNCTIVA: Yes conjunctivae normal PUPIL: Yes Equal, round and reactive pupils present Neck/C-Spine: COMMON NORMALS: full ROM, no lymphadenopathy, supple, no meningeal signs, no JVD and Thyroid normal THYROID: Thyroid normal Chest: COMMONS NORMALS: normal inspection of the chest and normal palpation of entire chest wall Resp: COMMON NORMALS: normal respiratory effort, No retractions and No use of accessory muscles Cardio: COMMON NORMALS: no JVD, regular rate, regular rhythm, S1 normal heart sound present, S2 normal heart sound present, No gallops present (Cardio), No clicks present (Cardio), No murmurs present (Cardio) and No rub (Cardio) RATE: regular rate RHYTHM: regular rhythm HEART SOUNDS: S1 normal heart sound present and S2 normal heart sound present GI: COMMON NORMALS: Normal to inspection, nondistended, normoactive bowel sounds present, Soft to palpation, non-tender, No hepatosplenomegaly present and no masses PALPATION: Yes Soft to palpation and Yes No hepatosplenomegaly present Neuro: COMMON NORMALS: patient oriented x3 SENSORIUM/ORIENTATION: Yes alert MENINGEAL SIGNS: Yes no meningeal signs Course Vital Signs: Vital signs: Vital Signs Temperature 98.1 F 02/17/24 17:42 Pulse Rate 76 02/17/24 18:50 Respiratory Rate 16 02/17/24 17:42 Blood Pressure 128/75 02/17/24 18:50 Pulse Oximetry 95 02/17/24 18:50 Oxygen Delivery Me thod Room Air 02/17/24 18:50 MDM - Weakness Medical Decision Making Waiting for lab work to return patient said he started feeling better and is ready to go. Patient checked out AMA. Medical Records I reviewed the patient's medical records. Lab Data I reviewed the patient's lab results. 02/17/24 18:00 02/17/24 18:00 Radiology Impressions Chest X-Ray 02/17/24 18:38 IMPRESSION: No acute pulmonary disease. Laboratory Results WBC 7.12 10^3/uL (3.29-11.43) 02/17/24 18:00 RBC 4.90 10^6/uL (3.85-5.65) 02/17/24 18:00 Hgb 15.40 g/dL (11.27-16.99) 02/17/24 18:00 Hct 44.6 % (37-53) 02/17/24 18:00 MCV 91.0 fl (82-101) 02/17/24 18:00 MCH 31.4 pg (27-33) 02/17/24 18:00 MCHC 34.5 g/dL (30-55) 02/17/24 18:00 RDW 12.5 % (12.1-15.1) 02/17/24 18:00 Plt Count 229 10^3/cmm (157-399) 02/17/24 18:00 MPV 10.1 fL (7.4-10.4) 02/17/24 18:00 Neut % (Auto) 55.3 % 02/17/24 18:00 Lymph % (Auto) 37.5 % 02/17/24 18:00 [place] % (Auto) 4.8 % 02/17/24 18:00 Eos % (Auto) 1.0 % 02/17/24 18:00 Baso % (Auto) 1.3 % 02/17/24 18:00 Neut # (Auto) 3.94 10^3/uL (1.8-7.7) 02/17/24 18:00 Lymph # (Auto) 2.7 10^3/uL (0.8-4.8) 02/17/24 18:00 [place] # (Auto) 0.3 10^3/uL (0.2-0.9) 02/17/24 18:00 Eos # (Auto) 0.1 10^3/uL (0.0-0.8) 02/17/24 18:00 Baso # (Auto) 0.1 10^3/uL (0.0-0.1) 02/17/24 18:00 Nucleated RBC % (auto) 0 % 02/17/24 18:00 Nucleated RBCs # 0.0 /100WBC 02/17/24 18:00 Sodium 141 mmol/L (136-145) 02/17/24 18:00 Potassium 3.8 mmol/L (3.5-5.1) 02/17/24 18:00 Chloride 105 mmol/L (98-107) 02/17/24 18:00 Carbon Dioxide 25 mmol/L (22-29) 02/17/24 18:00 Anion Gap 14.8 (5-19) 02/17/24 18:00 BUN 14 mg/dL (8-23) 02/17/24 18:00 Creatinine 1.2 mg/dL (0.7-1.2) 02/17/24 18:00 GFR Calculation 61.1 mL/min (90-130) L 02/17/24 18:00 Glucose 251 mg/dL (65-115) H 02/17/24 18:00 POC Glucose 219 mg/dL (70-110) H 02/17/24 17:58 Calculated Osmolality 301 mOsm/kg (285-295) H 02/17/24 18:00 Calcium 9.2 mg/dL (8.5-10.5) 02/17/24 18:00 Magnesium 2.0 mg/dL (1.7-2.3) 02/17/24 18:00 Total Bilirubin 0.8 mg/dL (0.15-1.2) 02/17/24 18:00 AST 18 U/L (0-40) 02/17/24 18:00 ALT 18 U/L (0-41) 02/17/24 18:00 Alkaline Phosphatase 103 U/L (40-130) 02/17/24 18:00 Troponin T Baseline 9 ng/L (0-15) 02/17/24 18:00 Total Protein 6.6 g/dL (6.6-8.7) 02/17/24 18:00 Albumin 4.3 g/dL (3.5-5.2) 02/17/24 18:00 Globulin 2.3 g/dL (1.3-4.6) 02/17/24 18:00 All radiology interpretation(s) finalized by discharge Discharge Plan Discharge Patient Disposition: Left Against Medical Advice Clinical Impression: Left against medical advice Condition: Stable Prescriptions: No Action (DME) Dexcom G7 Crossword Puzzle Maker Misc See Rx Instructions .Route Qty: 1 0RF Rx Instructions: As directed (DME) Dexcom G7 Sensor Device See Rx Instructions .Route Qty: 3 2RF Rx Instructions: As directed loratadine 10 mg tablet 10 mg PO DAILY Qty: 90 1RF famotidine 20 mg tablet 20 mg PO BID Qty: 60 0RF phenytoin sodium extended 100 mg capsule 200 mg PO BID tizanidine 4 mg capsule 4 mg PO TID PRN (Reason: muscle spasticity) Qty: 30 2RF Novolog FlexPen U-100 Insulin 100 unit/mL (3 mL) insulin pen See Rx Instructions SUBCUT TID Qty: 15 2RF Rx Instructions: Per Sliding Scale subcutaneously three times daily; sildenafil [Viagra] 100 mg tablet 100 mg PO DAILY PRN (Reason: sexual activity) Qty: 10 2RF Rx Instructions: administer 30 minutes to 4 hours before activity Do not take with nitro. tamsulosin 0.4 mg capsule 0.4 mg PO DAILY Qty: 90 1RF Janumet XR 100-1,000 mg tablet, ER multiphase 24 hr 1 tab PO DAILY Qty: 90 1RF ropinirole 1 mg tablet 1 mg PO DAILY Qty: 90 1RF omeprazole 20 mg capsule,delayed release(DR/EC) 20 mg PO DAILY Qty: 90 1RF insulin glargine [Lantus Solostar U-100 Insulin] 100 unit/mL (3 mL) insulin pen See Rx Instructions .ROUTE .COMPLEX Qty: 15 2RF Dose Instruction: inject 10 units SUBCUTANEOUSLY DAILY Rx Instructions: inject 20 units SUBCUTANEOUSLY DAILY atorvastatin 80 mg tablet 80 mg PO DAILY Qty: 90 1RF gabapentin 800 mg tablet 800 mg PO TID Qty: 90 2RF (DME) Blood Glucose Test Strip See Rx Instructions .ROUTE .MEDSUPPLY Qty: 50 0RF Rx Instructions: to test 1 x day (DME) lancets 31 gauge misc See Rx Instructions .Route Qty: 100 0RF Rx Instructions: test blood sugar 1 time daily (DME) Blood Glucose Test Strip See Rx Instructions .Route Qty: 25 1RF Rx Instructions: test blood sugar 1 time daily (DME) blood-glucose meter Misc See Rx Instructions .Route Qty: 1 0RF Rx Instructions: test blood sugar 1 time daily cholecalciferol (vitamin D3) 1,250 mcg (50,000 unit) tablet 50,000 unit PO .weekly Qty: 12 0RF Proventil HFA 90 mcg/actuation HFA aerosol inhaler 2 inh inhalation Q6H Qty: 8.5 2RF Referrals: Duyen Rush FNP [Primary Care Provider] - 1 week Patient Instructions: Against Medical Advice (ED) Coding Level of Care Code ED Oracle Database Manager for Chg Fwd Related Data Home Medications Medication Instructions Recorded Confirmed phenytoin sodium extended 100 mg 200 mg PO BID 09/02/22 02/04/24 capsule Previous Rx's Medication Instructions Recorded blood sugar diagnostic (Blood #50 ea 09/11/21 Glucose Test strips) lancets 31 gauge #100 ea 09/13/21 blood-glucose meter,continuous #1 ea 10/22/22 (Dexcom G7 Crossword Puzzle Maker) blood-glucose sensor (Dexcom G7 #3 ea 10/22/22 Sensor device) insulin aspart U-100 100 unit/mL See Rx Instructions SUBCUT TID #15 08/10/23 (3 mL) subcutaneous pen (Novolog mL FlexPen U-100 Insulin aspart) sildenafil 100 mg tablet (Viagra) 100 mg PO DAILY PRN sexual 08/10/23 activity #10 tabs tizanidine 4 mg capsule 4 mg PO TID PRN muscle spasticity 08/10/23 #30 caps blood sugar diagnostic (Blood #25 ea 08/11/23 Glucose Test strips) blood-glucose meter #1 ea 08/11/23 albuterol sulfate 90 mcg/actuation 2 inh inhalation Q6H wheezing #8.5 08/12/23 aerosol inhaler (Proventil HFA) grams cholecalciferol (vitamin D3) 1,250 50,000 unit PO .weekly #12 tabs 08/18/23 mcg (50,000 unit) tablet atorvastatin 80 mg tablet 80 mg PO DAILY #90 tabs 02/04/24 gabapentin 800 mg tablet 800 mg PO TID #90 tabs 02/04/24 insulin glargine 100 unit/mL (3 See Rx Instructions .Route 02/04/24 mL) subcutaneous pen (Lantus .COMPLEX #15 mL Solostar U-100 Insulin) omeprazole 20 mg capsule,delayed 20 mg PO DAILY #90 caps 02/04/24 release ropinirole 1 mg tablet 1 mg PO DAILY #90 tabs 02/04/24 sitagliptin phos 100 mg-metformin 1 tab PO DAILY #90 tabs 02/04/24 ER 1,000 mg tablet,extend rel 24h mp (Janumet XR) tamsulosin 0.4 mg capsule 0.4 mg PO DAILY #90 caps 02/04/24 famotidine 20 mg tablet 20 mg PO BID #60 tabs 02/11/24 loratadine 10 mg tablet 10 mg PO DAILY #90 tabs 02/11/24 Allergies Allergy/AdvReac Type Severity Reaction Status Date / Time Penicillins Allergy Severe ALGY-Rash Verified 02/11/24 11:23 chocolate flavor Allergy Mild ALGY-Hives Verified 02/11/24 11:23 ibuprofen [From Advil] Allergy Mild ADR-Nausea Verified 02/11/24 11:23 aspirin Allergy Unknown ADR-Nausea Verified 02/11/24 11:23
[2024-02-17 18:13] LABS: Basophils # 0.1 10^3/uL (0.0-0.1); Basophils % 1.3 %; Eosinophils # 0.1 10^3/uL (0.0-0.8); Hematocrit 44.6 % (37-53); Lymphocytes # 2.7 10^3/uL (0.8-4.8); Lymphocytes % 37.5 %; Mean Corpuscular HGB Conc 34.5 g/dL (30-55); Mean Corpuscular Hemoglobin 31.4 pg (27-33); Mean Platelet Volume 10.1 fL (7.4-10.4); Monocytes # 0.3 10^3/uL (0.2-0.9); Monocytes % 4.8 %; Neutrophils # 3.94 10^3/uL (1.8-7.7); Neutrophils % 55.3 %; Nucleated Red Blood Cells % 0 %; Platelet Count 229 10^3/cmm (157-399); Red Cell Distribution Width 12.5 % (12.1-15.1); White Blood Count 7.12 10^3/uL (3.29-11.43)
[2024-02-17] MEDS: sodium chloride 0.9% 1,000 ML 999 ML IV (18:21)
[2024-02-17 18:24] VITALS: BP 124/70; PULSE 71; O2SAT 95
[2024-02-17 18:32] LABS: Alanine Aminotransferase 18 U/L (0-41); Albumin Level 4.3 g/dL (3.5-5.2); Alkaline Phosphatase 103 U/L (40-130); Anion Gap 14.8 (5-19); Aspartate Amino Transferase 18 U/L (0-40); Blood Urea Nitrogen 14 mg/dL (8-23); Calcium 9.2 mg/dL (8.5-10.5); Carbon Dioxide 25 mmol/L (22-29); Chloride 105 mmol/L (98-107); Globulin 2.3 g/dL (1.3-4.6); Glomerular Filtration Rate 61.1 mL/min (90-130); Glucose 251 mg/dL (65-115); Osmolality Calculated 301 mOsm/kg (285-295); Potassium 3.8 mmol/L (3.5-5.1); Sodium 141 mmol/L (136-145); Total Bilirubin 0.8 mg/dL (0.15-1.2); Total Protein 6.6 g/dL (6.6-8.7)
--- NOTE | 2024-02-17 18:36 | ECG_ITS ---
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 Measurements Intervals [place] Rate: 66 P: 64 [place]: 159 QRS: 94 QRSD: 87 T: 17 QT: 384 QTc: 405 Interpretive Statements SINUS RHYTHM BORDERLINE RIGHT AXIS DEVIATION [QRS AXIS > 90] Compared to ECG 08/12/2023 13:51:12 No significant changes Electronically Signed On 02-17-2024 22:37:27 CDT by Norberto Crawford M.D. [id number]
--- NOTE | 2024-02-17 18:38 | XRR_ITS ---
PROCEDURE INFORMATION: Exam: XR Chest Exam date and time: 02/17/2024 6:42 PM Age: 63 years old Clinical indication: Other: Weak; Additional info: Weakness TECHNIQUE: Imaging protocol: Radiologic exam of the chest. Views: 1 view. COMPARISON: CR XR chest 1V portable [id number] 08/12/2023 1:05 PM FINDINGS: Lungs: The lungs are adequately expanded. No focal consolidations or pulmonary edema. Minimal left basilar atelectasis versus scarring. Pleural spaces: No pleural effusions or pneumothorax. Heart/Mediastinum: No cardiomegaly. Bones/joints: No acute fractures. Cervical fusion hardware. XR/XR chest 1V portable [id number] IMPRESSION: No acute pulmonary disease.
[2024-02-17 18:50] VITALS: BP 128/75; PULSE 76; O2SAT 95
[2024-02-17 19:07] LABS: Troponin(5th) Baseline 9 ng/L (0-15)
--- NOTE | 2024-02-17 19:53 | PC.NURSE ---
Pt stated he was tired of waiting for his results. Pt had accompanied another pt and decided to be evaluated for his migraine and felt weak. Dr Wells was notified of the pt's request to leave a. Pt was education on the risk dehydration and recurrent headaches.
[2024-02-17 20:28] VITALS: BP 114/68; PULSE 71; O2SAT 94
== END 2024-02-17 19:38 | disposition left against medical advice (07) ==
PROVIDERS: Emergency Provider Emergency Medicine; PCP Nurse Practitioner Family
DX: R53.1 Weakness (principal); Z53.29 Procedure and treatment not carried out because of patient's decision for other reasons; Z79.4 Long term (current) use of insulin; E78.5 Hyperlipidemia, unspecified
CPT/HCPCS: 36416; 71045; 80053; 82962; 83735; 84484; 85025; 93005; 99285; J7030

== ENCOUNTER 2024-03-28 19:35 | Emergency (ER) | payer MEDICAID, SELFPAY ==
[2024-03-28 19:37] VITALS: BP 117/77; PULSE 78; RESP 18; TEMP 36.4; O2SAT 97; BMI 18.6
--- NOTE | 2024-03-28 19:49 | XRR_ITS ---
PROCEDURE INFORMATION: Exam: XR Left Hip Exam date and time: 03/28/2024 8:13 PM Age: 64 years old Clinical indication: Injury or trauma; Fall; Blunt trauma (contusions or hematomas); Left; Hip and pelvic region TECHNIQUE: Imaging protocol: Radiologic exam of the left hip. Views: 2 or 3 views hip with pelvis when performed. COMPARISON: CR XR lumbar spine 2-3V* [id number] 06/20/2022 4:09 PM FINDINGS: Bones/joints: Unremarkable. No acute fracture. Soft tissues: Unremarkable. XR/XR hip LT 2-3V wo/w pel* [id number] IMPRESSION: No acute findings.
--- NOTE | 2024-03-28 20:23 | ED_ITS ---
HPI - Fall General: Chief Complaint: Fall Stated Complaint: Fall Time Seen by Provider: 03/28/24 19:53 Source: patient Mode of arrival: ambulatory Limitations: no limitations History of Present Illness: 64-year-old male who states that he fell roughly 3 to 4 foot off a ladder 2 days ago. He states he landed on his left hip he had also had 2 puncture wounds to his left arm from nails and boards. He is unsure when his last tetanus was. He states he had some increasing pain in the left hip states has been able to ambulate but has had some increased stiffness and worsening pain with walking. He denies hitting his head denies any other injuries. Associated symptoms-after fall: Denies abdominal pain, chest pain, headache(s) or neck pain Related Data Home Medications Medication Instructions Recorded Confirmed phenytoin sodium extended 100 mg 200 mg PO BID 09/02/22 02/28/24 capsule Previous Rx's Medication Instructions Recorded blood sugar diagnostic (Blood #50 ea 09/11/21 Glucose Test strips) lancets 31 gauge #100 ea 09/13/21 blood-glucose meter,continuous #1 ea 10/22/22 (Dexcom G7 Glass Forming Crew Member) blood-glucose sensor (Dexcom G7 #3 ea 10/22/22 Sensor device) insulin aspart U-100 100 unit/mL See Rx Instructions SUBCUT TID #15 08/10/23 (3 mL) subcutaneous pen (Novolog mL FlexPen U-100 Insulin aspart) sildenafil 100 mg tablet (Viagra) 100 mg PO DAILY PRN sexual 08/10/23 activity #10 tabs tizanidine 4 mg capsule 4 mg PO TID PRN muscle spasticity 08/10/23 #30 caps blood sugar diagnostic (Blood #25 ea 08/11/23 Glucose Test strips) blood-glucose meter #1 ea 08/11/23 albuterol sulfate 90 mcg/actuation 2 inh inhalation Q6H wheezing #8.5 08/12/23 aerosol inhaler (Proventil HFA) grams cholecalciferol (vitamin D3) 1,250 50,000 unit PO .weekly #12 tabs 08/18/23 mcg (50,000 unit) tablet atorvastatin 80 mg tablet 80 mg PO DAILY #90 tabs 02/04/24 gabapentin 800 mg tablet 800 mg PO TID #90 tabs 02/04/24 insulin glargine 100 unit/mL (3 See Rx Instructions .Route 02/04/24 mL) subcutaneous pen (Lantus .COMPLEX #15 mL Solostar U-100 Insulin) omeprazole 20 mg capsule,delayed 20 mg PO DAILY #90 caps 02/04/24 release ropinirole 1 mg tablet 1 mg PO DAILY #90 tabs 02/04/24 sitagliptin phos 100 mg-metformin 1 tab PO DAILY #90 tabs 02/04/24 ER 1,000 mg tablet,extend rel 24h mp (Janumet XR) tamsulosin 0.4 mg capsule 0.4 mg PO DAILY #90 caps 02/04/24 famotidine 20 mg tablet 20 mg PO BID #60 tabs 02/11/24 loratadine 10 mg tablet 10 mg PO DAILY #90 tabs 02/11/24 methocarbamol 750 mg tablet 750 mg PO Q6H PRN spasms #20 tabs 03/28/24 naproxen 500 mg tablet (Naprosyn) 500 mg PO BID PRN pain #20 tabs 03/28/24 Allergies Allergy/AdvReac Type Severity Reaction Status Date / Time Penicillins Allergy Severe ALGY-Rash Verified 03/28/24 19:42 chocolate flavor Allergy Mild ALGY-Hives Verified 03/28/24 19:42 ibuprofen [From Advil] Allergy Mild ADR-Nausea Verified 03/28/24 19:42 aspirin Allergy Unknown ADR-Nausea Verified 03/28/24 19:42 Review of Systems Const: Denies: fever(s), chills, body aches or change in appetite ENMT: Denies: throat pain or dental pain Card: Denies: chest pain Resp: Denies: dyspnea GI: Denies: abdominal pain, nausea, vomiting or diarrhea Musc: Reports: extremity pain; Denies: neck pain or back pain Skin/Breast: Denies: rash Neuro: Denies: headache(s) PFSH ED PFSH: Medical History Chronic low back pain Hyperlipidemia Controlled epilepsy follows with Dr Cooper Restless legs syndrome Seasonal allergies Lipoma of extremity Spinal stenosis, cervical region Surgical History Hx of tonsillectomy Hx of hernia repair Hx of hand surgery bilateral Hx of brain surgery (~1970) Hx of shoulder surgery History of back surgery Social History Smoking and tobacco/nicotine status: never used tobacco/nicotine Second hand smoke exposure: No Alcohol intake: never Substance/Drug Use: never Lives independently: Yes Household members: none Marital status: Current occupational status: employed 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 Current gender 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: Male Physical Exam Const: COMMON NORMALS: no acute distress, patient oriented x3 and healthy appearing HENMT: COMMON NORMALS: normocephalic and atraumatic HEAD & SCALP: nor mocephalic and atraumatic Eye: COMMON NORMALS: conjunctivae normal CONJUNCTIVA: Yes conjunctivae normal Neck/C-Spine: COMMON NORMALS: full ROM and supple Chest: COMMONS NORMALS: normal inspection of the chest Resp: COMMON NORMALS: normal respiratory effort, No retractions, No use of accessory muscles and clear to auscultation bilaterally AUSCULTATION: clear to auscultation bilaterally Cardio: COMMON NORMALS: regular rate, regular rhythm and No murmurs present (Cardio) RATE: regular rate RHYTHM: regular rhythm Extremity: NARRATIVE EXTREMITY EXAM: Tenderness noted to left hip no obvious deformities Neuro: COMMON NORMALS: patient oriented x3, moves all extremities and no focal motor deficits Psych: COMMON NORMALS: mental status grossly normal, Normal thought process present and cooperative THOUGHT PROCESS: Normal thought process present Skin: COMMON NORMALS: no rashes or lesions noted and no wounds GENERAL SKIN EXAM: no rashes or lesions noted Course Vital Signs: Vital signs: Vital Signs Temperature 97.6 F 03/28/24 19:37 Pulse Rate 75 03/28/24 20:41 Respiratory Rate 18 03/28/24 19:37 Blood Pressure 122/70 03/28/24 20:41 Pulse Oximetry 99 03/28/24 20:41 Oxygen Delivery Me thod Room Air 03/28/24 20:41 MDM - Fall Medical Decision Making Patient presents here with left hip pain x-ray shows no fracture he is otherwise well-appearing here did have small puncture wound from a nail did update his tetanus no signs of infection. Patient's to follow-up PCP return if worsening patient was able ambulate here without any difficulty. Medical Records I reviewed the patient's medical records. All radiology interpretation(s) finalized by discharge Discharge Plan Discharge Patient Disposition: Home Clinical Impression: Fall Contusion of hip, left Qualifiers: Encounter type: initial encounter Qualified Code(s): S70.02XA - Contusion of left hip, initial encounter Condition: Stable Prescriptions: New methocarbamol 750 mg tablet 750 mg PO Q6H PRN (Reason: spasms) Qty: 20 0RF naproxen [Naprosyn] 500 mg tablet 500 mg PO BID PRN (Reason: pain) Qty: 20 0RF No Action (DME) Dexcom G7 Glass Forming Crew Member Misc See Rx Instructions .Route Qty: 1 0RF Rx Instructions: As directed (DME) Dexcom G7 Sensor Device See Rx Instructions .Route Qty: 3 2RF Rx Instructions: As directed loratadine 10 mg tablet 10 mg PO DAILY Qty: 90 1RF famotidine 20 mg tablet 20 mg PO BID Qty: 60 0RF phenytoin sodium extended 100 mg capsule 200 mg PO BID tizanidine 4 mg capsule 4 mg PO TID PRN (Reason: muscle spasticity) Qty: 30 2RF Novolog FlexPen U-100 Insulin 100 unit/mL (3 mL) insulin pen See Rx Instructions SUBCUT TID Qty: 15 2RF Rx Instructions: Per Sliding Scale subcutaneously three times daily; sildenafil [Viagra] 100 mg tablet 100 mg PO DAILY PRN (Reason: sexual activity) Qty: 10 2RF Rx Instructions: administer 30 minutes to 4 hours before activity Do not take with nitro. tamsulosin 0.4 mg capsule 0.4 mg PO DAILY Qty: 90 1RF Janumet XR 100-1,000 mg tablet, ER multiphase 24 hr 1 tab PO DAILY Qty: 90 1RF ropinirole 1 mg tablet 1 mg PO DAILY Qty: 90 1RF omeprazole 20 mg capsule,delayed release(DR/EC) 20 mg PO DAILY Qty: 90 1RF insulin glargine [Lantus Solostar U-100 Insulin] 100 unit/mL (3 mL) insulin pen See Rx Instructions .ROUTE .COMPLEX Qty: 15 2RF Dose Instruction: inject 10 units SUBCUTANEOUSLY DAILY Rx Instructions: inject 20 units SUBCUTANEOUSLY DAILY atorvastatin 80 mg tablet 80 mg PO DAILY Qty: 90 1RF gabapentin 800 mg tablet 800 mg PO TID Qty: 90 2RF (DME) Blood Glucose Test Strip See Rx Instructions .ROUTE .MEDSUPPLY Qty: 50 0RF Rx Instructions: to test 1 x day (DME) lancets 31 gauge misc See Rx Instructions .Route Qty: 100 0RF Rx Instructions: test blood sugar 1 time daily (DME) Blood Glucose Test Strip See Rx Instructions .Route Qty: 25 1RF Rx Instructions: test blood sugar 1 time daily (DME) blood-glucose meter Misc See Rx Instructions .Route Qty: 1 0RF Rx Instructions: test blood sugar 1 time daily cholecalciferol (vitamin D3) 1,250 mcg (50,000 unit) tablet 50,000 unit PO .weekly Qty: 12 0RF Proventil HFA 90 mcg/actuation HFA aerosol inhaler 2 inh inhalation Q6H Qty: 8.5 2RF Discharge Orders: Discharge ED (Routine); Ordered 03/28/24 Ordered By: Ovidio Alexander Referrals: Duyen Rush FNP [Primary Care Provider] - 4-7 days Discharge Diet: Advance as tolerated Discharge Activity: Resume usual activity Patient Instructions: Contusion in Adults (ED), Hip Pain (ED) Coding Level of Care Code ED Chief Crew Scheduler for Bryan Hodge
[2024-03-28] MEDS: HYDROcodone-acetaminophen 5-325 mg Tablet 2 TAB PO (20:33)
[2024-03-28] MEDS: tetanus-dipt-pertussis 0.5 mL SDV IM (20:33)
[2024-03-28 20:41] VITALS: BP 122/70; PULSE 75; O2SAT 99
[2024-03-28 21:19] VITALS: BP 121/67; PULSE 72; RESP 18; O2SAT 96
== END 2024-03-28 21:20 | disposition home or self-care (01) ==
PROVIDERS: Emergency Provider Emergency Medicine; PCP Nurse Practitioner Family
DX: S70.02XA Contusion of left hip, initial encounter (principal); S41.132A Puncture wound without foreign body of left upper arm, initial encounter; W45.0XXA Nail entering through skin, initial encounter; W11.XXXA Fall on and from ladder, initial encounter; E78.5 Hyperlipidemia, unspecified; Z23 Encounter for immunization
CPT/HCPCS: 73502; 90471; 90715; 99283

== ENCOUNTER → 2024-07-22 10:44 | Outpatient (BNVA) | payer MEDICAID, SELFPAY | PROVIDERS: Family Provider Nurse Practitioner Family; PCP Nurse Practitioner Family; Visit Provider Nurse Practitioner Family | DX: E11.65 Type 2 diabetes mellitus with hyperglycemia (principal); Z79.4 Long term (current) use of insulin | CPT/HCPCS: 80053; 83036; 85025 ==

== ENCOUNTER 2024-11-21 17:03 | Outpatient (CLI) | payer MEDICAID, SELFPAY ==
--- NOTE | 2024-11-21 17:15 | XRR_ITS ---
PROCEDURE INFORMATION: Exam: XR Right Shoulder Exam date and time: 11/21/2024 5:19 PM Age: 64 years old Clinical indication: Pain; Shoulder; Right; Additional info: M25.511 - pain in right shoulder TECHNIQUE: Imaging protocol: Radiologic exam of the right shoulder. Views: 2 or more views. COMPARISON: CR XR chest 1V portable [id number] 02/17/2024 6:42 PM FINDINGS: Bones/joints: Normal. Soft tissues: Normal. XR/XR shoulder RT min 2V* [id number] IMPRESSION: No acute findings.
== END 2024-11-21 17:04 | disposition home or self-care (01) ==
PROVIDERS: Family Provider Nurse Practitioner Family; PCP Nurse Practitioner Family; Visit Provider Nurse Practitioner Family
DX: M25.511 Pain in right shoulder (principal)
CPT/HCPCS: 73030

== ENCOUNTER 2024-11-25 14:59 | Outpatient (CLI) | payer MEDICAID, SELFPAY ==
--- NOTE | 2024-11-25 12:15 | MR_ITS ---
WS: [id number] MRI RIGHT SHOULDER NONCONTRAST TECHNIQUE: Sagittal T2, coronal T1, T2 and proton density imaging. Axial gradient PDE imaging. CLINICAL INFORMATION: M25.511 - Pain in right shoulder COMPARISON: MRI 2018 FINDINGS: Advanced degenerative arthritis AC joint with moderate downsloping acromion. Impingement on the distal supraspinatus. Small amount of subacromial subdeltoid fluid. Chronic thinning of the supraspinatus with tendinopathy. Chronic thinning of the infraspinatus with tendinopathy. Supraspinatus and infraspinatus appear intact. Normal teres minor. Subscapularis tendon appears intact. Medial dislocation of the biceps tendon from the bicipital groove is new from previous. Tiny diminutive residual biceps tendon compatible with interval tear. Small but intact intra-articular biceps tendon with tendinopathy. Biceps labral anchor appears grossly intact. Degenerative fraying glenoid labrum. Moderate advanced d egenerative narrowing glenohumeral articulation. Normal bone marrow signal in the glenoid. Degenerative change of the greater tuberosity. Otherwise normal bone marrow signal in the humeral head MR/MR shoulder RT wo con* [id number] IMPRESSION: 1. Advanced degenerative arthritis AC joint with narrowing of the subacromial space. Impingement on the distal supraspinatus. 2. Tendinopathy with chronic thinning of the supraspinatus and infraspinatus. 3. Medial dislocation of the biceps tendon from the bicipital groove is new fr om previous with a tiny residual biceps tendon compatible with partial tear. 4. Small but intact intra-articular biceps tendon with tendinopathy. 5. Moderate to advanced degenerative narrowing of the glenohumeral articulatio n. 6. No other acute findings.
== END 2024-11-25 15:00 | disposition home or self-care (01) ==
LOC: RAD 15:00
PROVIDERS: Family Provider Nurse Practitioner Family; PCP Nurse Practitioner Family; Visit Provider Nurse Practitioner Family
DX: M19.011 Primary osteoarthritis, right shoulder (principal); M75.91 Shoulder lesion, unspecified, right shoulder
CPT/HCPCS: 73221

== ENCOUNTER 2024-12-29 10:14 | Emergency (ER) | payer MEDICAID, SELFPAY ==
[2024-12-29 10:17] VITALS: BP 125/79; PULSE 70; RESP 16; TEMP 37.2; O2SAT 96; BMI 19.5
--- NOTE | 2024-12-29 10:56 | W.ED.DIZZY ---
HPI - Dizziness General: Chief Complaint: Dizziness Stated Complaint: ra[id - high blood sugar Time Seen by Provider: 12/29/24 10:26 History of Present Illness: HPI Narrative: 64-year-old male presents emergency room from the Ortho clinic after rapid response. He is feeling dizzy and lightheaded generally weak but no focal neurologic deficits. He is an insulin-dependent diabetic has not been using his insulin appropriately. No recent fever sweats chills cough shortness of breath dysuria urgency or frequency. Patient has a Dexcom and but administers his own insulin he has difficult time calculating the dose he does not use regularly or necessarily at the correct dose. He has not taken any insulin today. Associated symptoms: Denies chest pain or chills Related Data Home Medications ?Medication ?Instructions ?Recorded ?Confirmed gabapentin 800 mg tablet 800 mg PO TID 12/29/24 12/29/24 insulin glargine 100 unit/mL (3 20 unit SUBCUT BID 12/29/24 12/29/24 mL) subcutaneous pen (Lantus Solostar U-100 Insulin) Previous Rx's ?Medication ?Instructions ?Recorded blood sugar diagnostic (Blood #50 ea 09/11/21 Glucose Test strips) lancets 31 gauge #100 ea 09/13/21 insulin aspart U-100 100 unit/mL See Rx Instructions SUBCUT TID #15 08/10/23 (3 mL) subcutaneous pen (Novolog mL FlexPen U-100 Insulin aspart) blood sugar diagnostic (Blood #25 ea 08/11/23 Glucose Test strips) blood-glucose meter #1 ea 08/11/23 atorvastatin 80 mg tablet 80 mg PO DAILY #90 tabs 02/04/24 ropinirole 1 mg tablet 1 mg PO DAILY #90 tabs 02/04/24 tamsulosin 0.4 mg capsule 0.4 mg PO DAILY #90 caps 02/04/24 loratadine 10 mg tablet 10 mg PO DAILY #90 tabs 02/11/24 blood-glucose sensor (Dexcom G7 #3 ea 08/08/24 Sensor device) 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-glucose,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,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 #1 ea 08/08/24 (Dexcom G7 Continuous Miner Operator) Allergies Allergy/AdvReac Type Severity Reaction Status Date / Time Penicillins Allergy Severe ALGY-Rash Verified 12/29/24 09:49 chocolate flavor Allergy Mild ALGY-Hives Verified 12/29/24 09:49 ibuprofen (From Advil) Allergy Mild ADR-Nausea Verified 12/29/24 09:49 aspirin Allergy Unknown ADR-Nausea Verified 12/29/24 09:49 Review of Systems Const: Denies: fever(s) or chills Card: Denies: chest pain Resp: Denies: dyspnea GI: Denies: abdominal pain : Denies: dysuria, urinary frequency or urinary urgency Musc: Denies: neck pain or back pain Skin/Breast: Denies: rash PFSH ED PFSH: Medical History Chronic low back pain Hyperlipidemia Controlled epilepsy follows with Dr Cooper Restless legs syndrome Seasonal allergies Lipoma of extremity Spinal stenosis, cervical region Surgical History Hx of tonsillectomy Hx of hernia repair Hx of hand surgery bilateral Hx of brain surgery (~1970) Hx of shoulder surgery History of back surgery Social History Smoking and tobacco/nicotine status: current every day tobacco/nicotine user cigarettes Packs smoked per day: 0.25 Years cigarettes smoked: 40 Second hand smoke exposure: No Alcohol intake: never Substance/Drug Use: never Lives independently: Yes Household members: none Marital status: Current occupational status: employed 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 Current gender identity: Male Physical Exam Const: COMMON NORMALS: no acute distress GENERAL APPEARANCE: cooperative and comfortable ORIENTATION/CONSCIOUSNESS: Yes awake, Yes oriented to person, Yes oriented to place and Yes oriented to time HENMT: COMMON NORMALS: normocephalic, atraumatic and hearing grossly normal bilaterally HEAD & SCALP: normocephalic and atraumatic Resp: COMMON NORMALS: normal respiratory effort, No retractions, No use of accessory muscles and clear to auscultation bilaterally AUSCULTATION: clear to auscultation bilaterally Cardio: COMMON NORMALS: regular rate, regular rhythm and No murmurs present (Cardio) RATE: regular rate RHYTHM: regular rhythm GI: COMMON NORMALS: Soft to palpation and No hepatosplenomegaly present AUSCULTATION: Yes normoactive bowel sounds PALPATION: Yes Soft to palpation, No Tenderness to palpation present (GI), No Guarding due to palpation present (GI) and Yes No hepatosplenomegaly present Extremity: COMMON NORMALS: normal to inspection, capillary refill normal, no clubbing, cyanosis or edema, no calf tenderness and no pedal edema Neuro: SENSORIUM/ORIENTATION: Yes oriented to person, Yes oriented to place and Yes oriented to time Skin: COMMON NORMALS: no rashes or lesions noted GENERAL SKIN EXAM: no rashes or lesions noted Course Vital Signs: Vital signs: Vital Signs Temperature 98.9 F 12/29/24 10:17 Pulse Rate 70 12/29/24 10:17 Respiratory Rate 16 12/29/24 10:17 Blood Pressure 125/79 12/29/24 10:17 Pulse Oximetry 96 12/29/24 10:17 Oxygen Delivery Me thod Room Air 12/29/24 10:17 MDM - Dizziness Medical Decision Making Neurologically intact no focal neurologic deficits are noted. Blood sugar is elevated. He is given insulin here will be discharged home continue to monitor his blood sugar closely adjust with short acting insulin as needed follow-up with his primary care doctor. Medical Records I reviewed the patient's medical records. Lab Data I reviewed the patient's lab results. 12/29/24 11:14 12/29/24 11:14 Laboratory Results WBC 8.09 10^3/uL (3.29-11.43) 12/29/24 11:14 RBC 4.96 10^6/uL (3.85-5.65) 12/29/24 11:14 Hgb 15.60 g/dL (11.27-16.99) 12/29/24 11:14 Hct 45.7 % (37-53) 12/29/24 11:14 MCV 92.1 fl (82-101) 12/29/24 11:14 MCH 31.5 pg (27-33) 12/29/24 11:14 MCHC 34.1 g/dL (30-55) 12/29/24 11:14 RDW 12.7 % (12.1-15.1) 12/29/24 11:14 Plt Count 189 10^3/cmm (157-399) 12/29/24 11:14 MPV 10.6 fL (7.4-10.4) H 12/29/24 11:14 Neut % (Auto) 73.0 % 12/29/24 11:14 Lymph % (Auto) 19.3 % 12/29/24 11:14 [place] % (Auto) 5.4 % 12/29/24 11:14 Eos % (Auto) 1.1 % 12/29/24 11:14 Baso % (Auto) 1.0 % 12/29/24 11:14 Neut # (Auto) 5.90 10^3/uL (1.8-7.7) 12/29/24 11:14 Lymph # (Auto) 1.6 10^3/uL (0.8-4.8) 12/29/24 11:14 [place] # (Auto) 0.4 10^3/uL (0.2-0.9) 12/29/24 11:14 Eos # (Auto) 0.1 10^3/uL (0.0-0.8) 12/29/24 11:14 Baso # (Auto) 0.1 10^3/uL (0.0-0.1) 12/29/24 11:14 Nucleated RBC % (auto) 0 % 12/29/24 11:14 Nucleated RBCs # 0.0 /100WBC 12/29/24 11:14 Sodium 135 mmol/L (136-145) L 12/29/24 11:14 Potassium 4.4 mmol/L (3.5-5.1) 12/29/24 11:14 Chloride 97 mmol/L (98-107) L 12/29/24 11:14 Carbon Dioxide 28 mmol/L (22-29) 12/29/24 11:14 Anion Gap 14.4 (5-19) 12/29/24 11:14 BUN 12 mg/dL (8-23) 12/29/24 11:14 Creatinine 1.0 mg/dL (0.7-1.2) 12/29/24 11:14 GFR Calculation 75.2 mL/min (90-130) L 12/29/24 11:14 Glucose 452 mg/dL (65-115) H 12/29/24 11:14 POC Glucose 462 mg/dL (70-110) H 12/29/24 10:23 Calculated Osmolality 299 mOsm/kg (285-295) H 12/29/24 11:14 Calcium 9.2 mg/dL (8.5-10.5) 12/29/24 11:14 Total Bilirubin 0.7 mg/dL (0.15-1.2) 12/29/24 11:14 AST 16 U/L (0-40) 12/29/24 11:14 ALT 21 U/L (0-41) 12/29/24 11:14 Alkaline Phosphatase 113 U/L (40-130) 12/29/24 11:14 Total Protein 6.4 g/dL (6.6-8.7) L 12/29/24 11:14 Albumin 3.9 g/dL (3.5-5.2) 12/29/24 11:14 Globulin 2.5 g/dL (1.3-4.6) 12/29/24 11:14 Urine Color Yellow (Yellow) 12/29/24 11:35 Urine Appearance Clear (CLEAR) 12/29/24 11:35 Urine pH 8.0 (5-7) A 12/29/24 11:35 Ur Specific [place] 1.034 (1.005-1.030) H 12/29/24 11:35 Urine Protein Negative (Negative) 12/29/24 11:35 Urine Glucose (UA) Trace (Normal) H 12/29/24 11:35 Urine Ketones Negative (Negative) 12/29/24 11:35 Urine Blood Negative (Negative) 12/29/24 11:35 Urine Nitrate Negative (Negative) 12/29/24 11:35 Urine Bilirubin Negative (Negative) 12/29/24 11:35 Urine Urobilinogen 1.0 mg/dL (Negative) 12/29/24 11:35 Ur Leukocyte Esterase Negative (Negative) 12/29/24 11:35 Urine RBC 0-2 /hpf (0-2) 12/29/24 11:35 Urine WBC 0-5 /hpf (0-5) 12/29/24 11:35 Ur Squamous Epith Cells 0-5 /hpf (0-5) 12/29/24 11:35 Amorphous Sediment Not Reportable 12/29/24 11:35 Urine Bacteria None seen /hpf (NONE) 12/29/24 11:35 Hyaline Casts 0-4 /lpf H 12/29/24 11:35 Serum Ketones Negative (Negative) 12/29/24 11:14 No radiology studies performed this visit Discharge Plan Discharge Patient Disposition: Home Clinical Impression: Hyperglycemia Condition: Stable Prescriptions: No Action loratadine 10 mg tablet 10 mg PO DAILY Qty: 90 1RF (DME) Dexcom G7 Sensor Device See Rx Instructions .Route Qty: 3 3RF Rx Instructions: check blood sugar 4 times a day and PRN (DME) Dexcom G7 Continuous Miner Operator Misc See Rx Instructions .Route Qty: 1 0RF Rx Instructions: check blood sugar 4 times daily and as directed Novolog FlexPen U-100 Insulin 100 unit/mL (3 mL) insulin pen See Rx Instructions SUBCUT TID Qty: 15 2RF Rx Instructions: Per Sliding Scale subcutaneously three times daily; tamsulosin 0.4 mg capsule 0.4 mg PO DAILY Qty: 90 1RF ropinirole 1 mg tablet 1 mg PO DAILY Qty: 90 1RF atorvastatin 80 mg tablet 80 mg PO DAILY Qty: 90 1RF (DME) Blood Glucose Test Strip See Rx Instructions .ROUTE .MEDSUPPLY Qty: 50 0RF Rx Instructions: to test 1 x day (DME) lancets 31 gauge misc See Rx Instructions .Route Qty: 100 0RF Rx Instructions: test blood sugar 1 time daily (DME) Blood Glucose Test Strip See Rx Instructions .Route Qty: 25 1RF Rx Instructions: test blood sugar 1 time daily (DME) blood-glucose meter Misc See Rx Instructions .Route Qty: 1 0RF Rx Instructions: test blood sugar 1 time daily gabapentin 800 mg tablet 800 mg PO TID insulin glargine [Lantus Solostar U-100 Insulin] 100 unit/mL (3 mL) insulin pen 20 unit SUBCUT BID Discharge Orders: Discharge ED (Routine); Ordered 12/29/24 Ordered By: Bubba Rondon Referrals: Duyen Rush FNP [Primary Care Provider, Family Practice] Discharge Diet: Diabetic Discharge Activity: Resume usual activity Patient Instructions: Opioid Safety, Pain Management, Patient Portal & [place] Instructions Activity Restrictions/Additional Instructions: Thank you for choosing [facility] for your healthcare needs today. It is very important that you follow up as instructed or that you return to the Emergency Department should you have concerns or if your condition changes or worsens in any way. You are seen emergency room for elevated blood sugar. You are given dose of insulin. Continue to monitor your blood sugar and adjust your sliding scale insulin as required. Print Language: Burkinan Coding Level of Care Code ED Nuclear Weapons Specialist for Bryan Hodge
--- NOTE | 2024-12-29 11:00 | ECG_ITS ---
[facility] 2024-12[facility]29 Pat Name: Ty Butler Department: Room: Gender: Male [employer]: : 1960 Requested By: Bubba Dutta Order Number: [id number] Lanier MD: Norberto Crawford M.D. Measurements Intervals [place] Rate: 62 P: 69 NV: 158 QRS: 91 QRSD: 88 T: 71 QT: 381 QTc: 388 Interpretive Statements SINUS RHYTHM POSSIBLE LEFT ATRIAL ENLARGEMENT [-0.1mV P-WAVE IN V1/V2] BORDERLINE RIGHT AXIS DEVIATION [QRS AXIS > 90] Compared to ECG 02/17/2024 18:36:07 No significant changes Electronically Signed On 12-31-2024 14:13:52 CDT by Norberto Crawford M.D. [email or web address]
[2024-12-29 11:22] LABS: Hematocrit 45.7 % (37-53); Hemoglobin 15.60 g/dL (11.27-16.99); Mean Corpuscular HGB Conc 34.1 g/dL (30-55); Mean Corpuscular Hemoglobin 31.5 pg (27-33); Mean Corpuscular Volume 92.1 fl (82-101); Nucleated Red Blood Cells % 0 %; Platelet Count 189 10^3/cmm (157-399); Red Blood Count 4.96 10^6/uL (3.85-5.65); White Blood Count 8.09 10^3/uL (3.29-11.43)
[2024-12-29 11:37] LABS: Ketone (Acetest) Serum Negative (Negative)
[2024-12-29 11:43] LABS: Glucose Urine UA Trace (Normal); Nitrate Urine Negative (Negative)
[2024-12-29 11:43] LABS: Alanine Aminotransferase 21 U/L (0-41); Albumin Level 3.9 g/dL (3.5-5.2); Alkaline Phosphatase 113 U/L (40-130); Anion Gap 14.4 (5-19); Aspartate Amino Transferase 16 U/L (0-40); Blood Urea Nitrogen 12 mg/dL (8-23); Calcium 9.2 mg/dL (8.5-10.5); Carbon Dioxide 28 mmol/L (22-29); Chloride 97 mmol/L (98-107); Creatinine Clr Calc Pharmacy 57.1034; Globulin 2.5 g/dL (1.3-4.6); Glucose 452 mg/dL (65-115); Osmolality Calculated 299 mOsm/kg (285-295); Potassium 4.4 mmol/L (3.5-5.1); Sodium 135 mmol/L (136-145); Total Protein 6.4 g/dL (6.6-8.7)
[2024-12-29 11:48] LABS: Add Urine Microscopic? YES
[2024-12-29 11:56] LABS: Specific Gravity, Urine 1.034 (1.005-1.030)
[2024-12-29] MEDS: insulin regular-human 100 units/1 mL 10 UNIT IVP (12:26)
== END 2024-12-29 13:33 | disposition home or self-care (01) ==
PROVIDERS: Emergency Provider Family Medicine; PCP Nurse Practitioner Family
DX: R73.9 Hyperglycemia, unspecified (principal); E78.5 Hyperlipidemia, unspecified; F17.210 Nicotine dependence, cigarettes, uncomplicated; Z79.4 Long term (current) use of insulin
CPT/HCPCS: 36415; 36416; 80053; 81001; 82009; 82962; 85025; 93005; 96374; 99284; J1815; J7030

== ENCOUNTER → 2025-01-10 11:22 | Outpatient (BNVA) | payer MEDICAID, SELFPAY | PROVIDERS: PCP Nurse Practitioner Family; Visit Provider Nurse Practitioner Family | DX: E11.65 Type 2 diabetes mellitus with hyperglycemia (principal); R63.4 Abnormal weight loss; R53.83 Other fatigue; Z79.4 Long term (current) use of insulin | CPT/HCPCS: 80053; 80061; 82306; 82607; 83036; 83735; 84439; 84443; 85025; 85651; G0103 ==

== ENCOUNTER 2025-01-25 13:45 | Outpatient (CLI) | payer MEDICAID, SELFPAY ==
[2025-01-25] MEDS: iohexol 350 mg/mL 500 mL Btl (per mL) PO (14:09)
--- NOTE | 2025-01-25 14:30 | CT_ITS ---
WS: [id number] CT CHEST, ABDOMEN AND PELVIS WITH CONTRAST HISTORY: R63.4 - Abnormal weight loss TECHNIQUE: Contiguous 5 mm axial imaging performed through the chest, abdomen and pelvis with IV contrast, oral contrast has been provided. Coronal and sagittal reformats chest. Coronal and sagittal reformats through the abdomen and pelvis. All CT scans at [facility] use at least one of these dose optimization techniques: automated exposure control; mA and/or kV adjustment per patient size (includes targeted exams where dose is matched to clinical indication); or iterative reconstruction. CONTRAST: Omnipaque 350; 100 mL IV. DLP: 404.11 mGy.cm COMPARISON: None available. Chest CT: Mild centrilobular emphysema and hyperinflation. There are a few scattered granulomata which are calcified and benign. No mass or nodule. No pneumonia. Mild atherosclerosis aorta. Normal size pulmonary artery. Heart size is normal. No pericardial or pleural effusions. No mediastinal or hilar adenopathy. Small hiatal hernia. No destructive changes in the thoracic spine. No destructive bone lesions. Abdomen CT: Normal liver and spleen. Normal gallbladder. Normal portal vein. No pancreatic abnormality. Pancreatic duct and common bile duct are normal size. Normal adrenal glands. No renal obstruction. RIGHT renal cyst 7 mm. Moderate atherosclerosis aorta. Component of stenosis involving the celiac axis and SMA. Stenosis estimated near 50% at the origin of the SMA and celiac axis. Renal artery origins are poorly visualized. Mild stenosis distal aorta. Plaque continues into the iliac arteries. Greater than 60% stenosis proximal LEFT common iliac artery. There is reconstitution distally. Stomach is not distended. No small bowel obstruction. No colitis. Mild diffuse constipation. No evidence for acute appendicitis. Pelvic CT: No free fluid. No adenopathy. Diffuse bladder wall thickening measuring up to 8 mm. Focal intense enhancement in the central urinary bladder at the trigone measures 10 mm. This may be associated with the bladder wall or the prostate gland. Prostate gland is very enlarged and heterogeneous ap proaching into the bladder. CT/CT chest abdpel w/*[id number] IMPRESSION: 1. Intensely enhancing 10 mm mass near the trigone of the urinary bladder. Mas s may be associated with the enlarged prostate gland which is very heterogeneou s encroaching into the bladder or bladder neoplasm. Recommend evaluation by uro logy. 2. Heterogeneous enlarged prostate gland. 3. No ascites or adenopathy. 4. Centrilobular emphysema. No pulmonary nodule or mass. 5. Moderate atherosclerosis aorta. 6. 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 7. Greater than 60% stenosis with mixed plaque involving the proximal LEFT com mon iliac artery.
[2025-01-25] MEDS: iohexol 350 mg/mL 500 mL Btl (per mL) IV (15:07)
== END 2025-01-25 13:46 | disposition home or self-care (01) ==
LOC: RAD 13:47
PROVIDERS: PCP Nurse Practitioner Family; Visit Provider Nurse Practitioner Family
DX: R63.4 Abnormal weight loss (principal); R53.83 Other fatigue; J43.2 Centrilobular emphysema; J98.4 Other disorders of lung; I70.0 Atherosclerosis of aorta; K44.9 Diaphragmatic hernia without obstruction or gangrene; N28.1 Cyst of kidney, acquired; I35.0 Nonrheumatic aortic (valve) stenosis; I70.8 Atherosclerosis of other arteries; K59.09 Other constipation; N32.9 Bladder disorder, unspecified; I77.4 Celiac artery compression syndrome; I77.1 Stricture of artery
CPT/HCPCS: 71260; 74177

== ENCOUNTER → 2025-02-09 11:52 | Outpatient (BNVA) | payer MEDICAID, SELFPAY | PROVIDERS: PCP Nurse Practitioner Family; Visit Provider Nurse Practitioner Family | DX: R52 Pain, unspecified (principal) | CPT/HCPCS: 80053; 85025 ==

== ENCOUNTER → 2025-02-15 12:56 | Outpatient (BNVA) | payer MEDICARE, MEDICAID, SELFPAY | PROVIDERS: PCP Nurse Practitioner Family; Visit Provider Nurse Practitioner Family | DX: E11.65 Type 2 diabetes mellitus with hyperglycemia (principal); Z79.4 Long term (current) use of insulin | CPT/HCPCS: 80053; 85025 ==

== ENCOUNTER → 2025-04-18 14:13 | Outpatient (BNVA) | payer MEDICARE, MEDICAID, SELFPAY | PROVIDERS: PCP Nurse Practitioner Family; Visit Provider Nurse Practitioner Family | DX: Z79.4 Long term (current) use of insulin (principal); E11.65 Type 2 diabetes mellitus with hyperglycemia | CPT/HCPCS: 80053; 80061; 83036; 85025 ==